=== PATIENT | female | born 1985 | race Caucasian/White ===

== ENCOUNTER 2017-09-20 19:04 | Emergency (ER) | payer MEDICARE, MEDICAID ==
[2017-09-20 19:37] LABS: #Basophils 0.1 thou/uL (0.0-0.2); #Eosinphils 0.2 thou/uL (0.0-0.7); #Lymphocytes 1.7 thou/uL (1.20-3.40); #Monocytes 0.3 thou/uL (0.11-0.59); #Neutrophils 4.6 thou/uL (1.40-6.50); %Basophils 1.2 % (0.0-1.0); %Eosinophils 2.2 % (0.0-10.0); %Lymphocytes 24.6 % (21.0-51.0); %Monocytes 4.6 % (0.0-10.0); Hematocrit 39.9 % (36.0-47.0); Mean Platelet Volume 6.6 fL (7.4-10.4); Red Blood Cell (RBC) Count 4.79 mill/uL (4.20-5.40); White Blood Cell (WBC) Count 6.8 thou/uL (4.8-10.8)
[2017-09-20 19:59] LABS: ALT (SGPT) 18 U/L (8-55); AST (SGOT) 13 U/L (5-34); Alkaline Phosphatase 89 U/L (40-150); Anion Gap 12 mmol/L (10-20); BUN (Urea Nitrogen) 10 mg/dL (7.0-18.7); Bilirubin, Total 0.2 mg/dL (0.2-1.2); Calc. Creatinine Clearance 0 mL/min (70-130); Calcium 9.2 mg/dL (7.8-10.44); Carbon Dioxide 21 mmol/L (22-29); Chloride 109 mmol/L (98-107); Estimated GFR-MDRD Greater than 90; Globulin 3.6 g/dL (2.4-3.5); Protein, Total 7.4 g/dL (6.0-8.3)
[2017-09-20] MEDS ORDERED: Ondansetron HCl/PF 4 MG/2 ML Vial ONE ×2 (20:48→20:49)
[2017-09-20] MEDS ORDERED: Acetaminophen 325 MG TAB ONE (20:48)
[2017-09-20] MEDS ORDERED: Morphine 10 MG/ML VIAL ONE (21:36)
[2017-09-20 22:54] LABS: Bilirubin Negative (Negative); Blood, Urine Negative (Negative); Glucose, Urine (Dipstick) Negative (Negative); Ketone, Urine Negative (Negative); Nitrite Negative (Negative); Protein, Urine (Dipstick) Negative (Neg-Trace); Urobilinogen 0.2 mg/dL (0.2-1.0)
[2017-09-20 23:01] LABS: Bacteria/HPF Rare-Few HPF (None Seen); Hyaline Casts/LPF 0-3 HYALINE CAST LPF (0-3 Hyaline); RBC/HPF 0-3 HPF (0-3); Squamous Epithelial 0-3 HPF (0-3)
[2017-09-20] MEDS ORDERED: Promethazine HCl 25 MG/ML VIAL ONE (23:33)
[2017-09-20] MEDS ORDERED: Bisacodyl 10 MG SUPP ONE (23:33)
[2017-09-20] MEDS ORDERED: Ondansetron ODT 4 MG TAB ONE (23:47)
[2017-09-21] MEDS ORDERED: Ondansetron ODT 4 MG TAB ONE (00:09)
== END 2017-09-21 00:16 | disposition home or self-care (01) ==
LOC: ERS 19:04
DX: K59.00 Constipation, unspecified (principal); R11.2 Nausea with vomiting, unspecified; E78.5 Hyperlipidemia, unspecified; I10 Essential (primary) hypertension; E66.01 Morbid (severe) obesity due to excess calories
CPT/HCPCS: 36415; 80053; 81003; 81015; 81025; 83690; 85025; 96361; 96374; 96375; J2270; J2405; J2550; Q0162

== ENCOUNTER 2017-10-20 03:46 | Emergency (ER) | payer MEDICARE, MEDICAID ==
[2017-10-20] MEDS ORDERED: HYDROcodone/Acetaminophen 7.5/325 mg Tablet ONE (04:39)
== END 2017-10-20 04:59 | disposition home or self-care (01) ==
LOC: SCSER 03:46
DX: H60.92 Unspecified otitis externa, left ear (principal); E78.5 Hyperlipidemia, unspecified; I10 Essential (primary) hypertension; E66.9 Obesity, unspecified; G43.909 Migraine, unspecified, not intractable, without status migrainosus; G47.30 Sleep apnea, unspecified; F32.9 Major depressive disorder, single episode, unspecified; F43.10 Post-traumatic stress disorder, unspecified
CPT/HCPCS: 99282

== ENCOUNTER 2018-01-27 13:46 | Outpatient (CLI) | payer MEDICARE, MEDICAID | END 2018-01-27 13:47 | disposition home or self-care (01) | LOC: CTENTCT 13:46 | PROVIDERS: ATTEND Otolaryngology Plastic Surgery within the Head & Neck | DX: J32.9 Chronic sinusitis, unspecified (principal) | CPT/HCPCS: 70486 ==

== ENCOUNTER 2018-01-30 20:44 | Emergency (ER) | payer MEDICARE, MEDICAID ==
[2018-01-30] MEDS ORDERED: diphenhydrAMINE 50 MG/ML VIAL ONE (21:53)
[2018-01-30] MEDS ORDERED: Ketorolac Tromethamine 30 MG/ML VIAL ONE (21:53)
[2018-01-30] MEDS ORDERED: Metoclopramide HCl 10 MG/2 ML VIAL ONE (21:53)
[2018-01-30] MEDS ORDERED: HYDROcodone/Acetaminophen 5/325 mg Tablet ONE (23:46)
== END 2018-01-31 00:16 | disposition home or self-care (01) ==
LOC: ERS 20:44
DX: J32.9 Chronic sinusitis, unspecified (principal); G43.909 Migraine, unspecified, not intractable, without status migrainosus; E78.5 Hyperlipidemia, unspecified; I10 Essential (primary) hypertension; E66.9 Obesity, unspecified; G47.30 Sleep apnea, unspecified; F32.9 Major depressive disorder, single episode, unspecified; Z79.899 Other long term (current) drug therapy
CPT/HCPCS: 96361; 96374; 96375; J1200; J1885; J2765

== ENCOUNTER 2018-02-16 10:09 | Day surgery (SDC) | payer MEDICARE, MEDICAID ==
[2018-02-15 13:30] VITALS: BMI 71.8
[2018-02-16] MEDS ORDERED: Oxymetazoline HCl 0.05% ( 15 ML ) ONE ×2 (11:09→11:48)
[2018-02-16 11:45] LABS: BHCG - Serum Negative (NEGATIVE); Pregs Control Background? CLEAR/WHITE (CLR/WHITE); Pregs Control Bar Appear? YES (CONTROL BAR)
[2018-02-16] MEDS ORDERED: Midazolam HCl 2 mg/2 ml Vial ONE (11:47)
[2018-02-16] MEDS ORDERED: Fentanyl 100 MCG/2 ML VIAL ONE ×3 (11:47→13:59)
[2018-02-16] MEDS ORDERED: Lidocaine 1% w/Epinephrine 1:200K 30 ML VIAL ONE (11:48)
[2018-02-16] MEDS ORDERED: Ciprofloxacin 0.2% Otic 1 DROP CON ONE (12:40)
[2018-02-16] MEDS ORDERED: PROPOFOL 200 MG/20 ML VIAL ONE (13:11)
[2018-02-16] MEDS ORDERED: Dexamethasone 20 MG/5 ML VIAL ONE (13:11)
[2018-02-16] MEDS ORDERED: Lidocaine 1% PF 5 ML VIAL ONE (13:11)
[2018-02-16] MEDS ORDERED: Succinylcholine Chloride 20 MG/ML 10 ml SYRINGE FS ONE (13:11)
[2018-02-16] MEDS ORDERED: Ondansetron HCl/PF 4 MG/2 ML Vial ONE (13:11)
[2018-02-16] MEDS ORDERED: Hydrocodone-Acetamin 15 ML UDCUP ONE (15:21)
--- NOTE | 2018-02-17 12:57 | OP ---
DATE OF PROCEDURE: 02/16/2018 PREOPERATIVE DIAGNOSES: 1. Chronic rhinosinusitis. 2. Left posterior ethmoidal mass/osteoma. 3. Bilateral inferior turbinate hypertrophy. 4. Right middle turbinate peter bullosa. 5. Nasal obstruction. POSTOPERATIVE DIAGNOSES: 1. Chronic rhinosinusitis. 2. Left posterior ethmoidal mass/osteoma. 3. Bilateral inferior turbinate hypertrophy. 4. Right middle turbinate peter bullosa. 5. Nasal obstruction. PROCEDURES: 1. Bilateral endoscopic sinus surgery, total ethmoidectomies. 2. Bilateral endoscopic sinus surgery, maxillary antrostomies. 3. Bilateral endoscopic sinus surgery, frontal sinusotomies. 4. Bilateral inferior turbinate submucosal resection. 5. Endoscopic resection of right middle turbinate peter bullosa. SURGEON: Dr. César Villegas. ESTIMATED BLOOD LOSS: 50 mL. COMPLICATIONS: None. ANESTHESIA: GETA. PROCEDURE: The patient was taken to the operating room and placed supine on the table. General endo tracheal anesthesia was obtained by the Anesthesia staff. The tube was secured in the left lower lip . The patient placed in the beach chair position. Following this, Afrin pledgets were placed in the nasal cavity as the patient was prepped and draped for standard nasal procedures. Following this, t he middle turbinate were gently medialized using the [place] elevator. Injections were made of 1% lido che with 1:100,000 epinephrine into the middle turbinates, inferior turbinates, and lateral nasal w all. On the right middle turbinate was markedly enlarged. A vertical incision was made with a sick le knife and the lateral wall of the right middle turbinate peter bullosa was resected using the str eddieght microdebrider and straight Blakesley forceps. Following this, the uncinate process was exposed bilaterally and was anteriorly fractured using a ball-ended probe bilaterally. Following this, the straight microdebrider and upbiting Blakesley forceps were used to remove the uncinate process and al so expose and identify the maxillary sinus ostia bilaterally. Maxillary sinus ostia was then widened bilaterally using the straight microdebrider and curved microdebrider. Following this, the ethmoida l bulla was identified and was punctured on its medial and inferior aspect and was removed using the straight microdebrider. Following this, the grand lamella was identified and was punctured in the po sterior ethmoidal cells. Working from posterior to anterior, the ethmoidal cells were opened in a mu cosal-sparing technique. Following this, the 45 degree scope and the curved 40 degree microdebrider blade was used to further identify the frontal recess cells which were opened and identify the fronta l sinus ostia bilaterally. The frontal sinus ostia was then widened bilaterally using the 90 degree Blakesley forceps and the curved microdebrider. Following this, the 0 degree endoscope was advanced to left posterior ethmoidal cells. There was a fairly large and obstructing osteoma arising from the medial posterior wall of the orbit. This was gently manipulated and fractured off leaving the perio rbita intact. There was no herniation or bleeding in this area after removal. This was sent for pat hological specimen. The patient tolerated the procedure well. Meropacks were placed in the nasal ca vity.
--- NOTE | 2018-03-02 22:42 | EKG ---
Test Reason : PREOP Blood Pressure : / mmHG Vent. Rate : 090 BPM Atrial Rate : 090 BPM P-R Int : 124 ms QRS Dur : 086 ms QT Int : 380 ms P-R-T Axes : 019 018 001 degrees QTc Int : 464 ms Normal sinus rhythm Normal ECG When compared with ECG of 23-APR-2017 03:19, T wave amplitude has decreased in Lateral leads Confirmed by Kate BURGOS ([id number]) on 03/02/2018 10:41:55 PM Referred By: EBONY Confirmed By:Kate BURGOS
== END 2018-02-16 15:47 | disposition home or self-care (01) ==
LOC: SDC 10:09
PROVIDERS: ATTEND Otolaryngology Plastic Surgery within the Head & Neck
PROC: 09TL0ZZ Resection of Nasal Turbinate, Open Approach (ICD-10-PCS; principal; 2018-02-16)
PROC: 09TV8ZZ Resection of Left Ethmoid Sinus, Via Natural or Artificial Opening Endoscopic (ICD-10-PCS; 2018-02-16)
PROC: 09TU8ZZ Resection of Right Ethmoid Sinus, Via Natural or Artificial Opening Endoscopic (ICD-10-PCS; 2018-02-16)
PROC: 099R8ZZ Drainage of Left Maxillary Sinus, Via Natural or Artificial Opening Endoscopic (ICD-10-PCS; 2018-02-16)
PROC: 099Q8ZZ Drainage of Right Maxillary Sinus, Via Natural or Artificial Opening Endoscopic (ICD-10-PCS; 2018-02-16)
PROC: 099T8ZZ Drainage of Left Frontal Sinus, Via Natural or Artificial Opening Endoscopic (ICD-10-PCS; 2018-02-16)
PROC: 099S8ZZ Drainage of Right Frontal Sinus, Via Natural or Artificial Opening Endoscopic (ICD-10-PCS; 2018-02-16)
DX: D16.4 Benign neoplasm of bones of skull and face (principal); J32.9 Chronic sinusitis, unspecified; J34.3 Hypertrophy of nasal turbinates; J34.2 Deviated nasal septum; J30.89 Other allergic rhinitis; H91.90 Unspecified hearing loss, unspecified ear; H69.80 Other specified disorders of Eustachian tube, unspecified ear; E78.00 Pure hypercholesterolemia, unspecified; K21.9 Gastro-esophageal reflux disease without esophagitis; F41.9 Anxiety disorder, unspecified; F32.9 Major depressive disorder, single episode, unspecified; Z88.1 Allergy status to other antibiotic agents; Z88.2 Allergy status to sulfonamides; Z79.899 Other long term (current) drug therapy
CPT/HCPCS: 84703; 85014; 88304; 88311; 93005; 93010; 96374; J0131; J1100; J2001; J2250; J2405; J2704; J3010; J7620

== ENCOUNTER 2018-03-06 19:03 | Emergency (ER) | payer MEDICARE, MEDICAID | END 2018-03-06 19:41 | disposition home or self-care (01) | LOC: SCSER 19:03 | DX: J02.9 Acute pharyngitis, unspecified (principal); J30.2 Other seasonal allergic rhinitis; E78.5 Hyperlipidemia, unspecified; I10 Essential (primary) hypertension; E66.01 Morbid (severe) obesity due to excess calories; G43.909 Migraine, unspecified, not intractable, without status migrainosus; E28.2 Polycystic ovarian syndrome; G47.30 Sleep apnea, unspecified; F32.9 Major depressive disorder, single episode, unspecified; F43.10 Post-traumatic stress disorder, unspecified; F41.9 Anxiety disorder, unspecified | CPT/HCPCS: 99283 ==

== ENCOUNTER 2018-04-17 18:19 | Emergency (ER) | payer MEDICARE, OTHER ==
[2018-04-17] MEDS ORDERED: Ketorolac Tromethamine 30 MG/ML VIAL ONE (18:51)
[2018-04-17] MEDS ORDERED: traMADol HCl 50 MG TAB ONE (18:52)
[2018-04-17] MEDS ORDERED: Morphine 4 MG/ML VIAL ONE (19:39)
[2018-04-17] MEDS ORDERED: Ondansetron ODT 4 MG TAB ONE (19:40)
== END 2018-04-17 20:34 | disposition home or self-care (01) ==
LOC: ERS 18:19
DX: M25.512 Pain in left shoulder (principal); G89.29 Other chronic pain; E78.5 Hyperlipidemia, unspecified; I10 Essential (primary) hypertension; E66.01 Morbid (severe) obesity due to excess calories; G43.909 Migraine, unspecified, not intractable, without status migrainosus; E28.2 Polycystic ovarian syndrome; G47.30 Sleep apnea, unspecified; F43.10 Post-traumatic stress disorder, unspecified; F32.9 Major depressive disorder, single episode, unspecified; F41.9 Anxiety disorder, unspecified; Z79.51 Long term (current) use of inhaled steroids; Z79.899 Other long term (current) drug therapy
CPT/HCPCS: 96372; J1885; J2270; Q0162

== ENCOUNTER 2018-05-13 04:57 | Observation (INO) | payer MEDICARE, MEDICAID ==
[2018-05-13 06:14] LABS: BHCG - Serum Negative (NEGATIVE); Pregs Control Background? CLEAR/WHITE (CLR/WHITE); Pregs Control Bar Appear? YES (CONTROL BAR)
[2018-05-13 06:23] LABS: ALT (SGPT) 17 U/L (8-55); AST (SGOT) 13 U/L (5-34); Albumin 4.2 g/dL (3.5-5.0); Alkaline Phosphatase 108 U/L (40-150); Anion Gap 11 mmol/L (10-20); BUN (Urea Nitrogen) 16 mg/dL (7.0-18.7); Bilirubin, Total Less than 0.2 mg/dL (0.2-1.2); CK (CPK) 49 U/L (29-168); Calc. Creatinine Clearance 0 mL/min (70-130); Calcium 9.8 mg/dL (7.8-10.44); Carbon Dioxide 24 mmol/L (22-29); Chloride 109 mmol/L (98-107); Estimated GFR-MDRD 75; Globulin 2.8 g/dL (2.4-3.5); Glucose 89 mg/dL (70-105); Lipase 24 U/L (8-78); Potassium 4.3 mmol/L (3.5-5.1); Sodium 140 mmol/L (136-145)
[2018-05-13 06:23] LABS: #Eosinphils 0.2 thou/uL (0.0-0.7); #Lymphocytes 2.4 thou/uL (1.20-3.40); #Monocytes 0.4 thou/uL (0.11-0.59); #Neutrophils 4.6 thou/uL (1.40-6.50); %Basophils 0.7 % (0.0-1.0); %Eosinophils 2.9 % (0.0-10.0); %Lymphocytes 31.1 % (21.0-51.0); %Neutrophils 60.4 % (42.0-75.0); Hemoglobin 11.7 g/dL (12.0-16.0); Mean Corpuscular HGB CONC 31.9 g/dL (32.0-36.0); Mean Corpuscular Hemoglobin 25.7 pg (27.0-31.0); Mean Corpuscular Volume 80.4 fL (78.0-98.0); Mean Platelet Volume 8.3 fL (7.4-10.4); Platelet Count 155 thou/uL (130-400); Red Blood Cell (RBC) Count 4.56 mill/uL (4.20-5.40); White Blood Cell (WBC) Count 7.6 thou/uL (4.8-10.8)
[2018-05-13 06:39] LABS: CKMB 0.5 ng/mL (0-6.6); Troponin I Less than 0.010 ng/mL (< 0.028)
[2018-05-13] MEDS ORDERED: Pantoprazole 40 MG VIAL ONE (06:51)
[2018-05-13] MEDS ORDERED: Mag-Al 1200 mg/1200 mg/30 ML UDCUP ONE (06:51)
[2018-05-13] MEDS ORDERED: Lidocaine Viscous Sol 2% 15 ml UD Cup ONE (06:51)
[2018-05-13] MEDS ORDERED: Dicyclomine 20 MG TAB ONE (06:51)
[2018-05-13] MEDS ORDERED: Ondansetron ODT 4 MG TAB ONE (06:51)
[2018-05-13] MEDS ORDERED: Nitroglycerin 0.4 MG TAB (25 Tab Bottle) ONE (07:44)
--- NOTE | 2018-05-13 07:46 | RAD ---
2 VIEWS CHEST: Date: 05/13/18 COMPARISON: 11/16/15. HISTORY: Chest pain that began tonight. FINDINGS: Two views of the chest show normal sized cardiomediastinal silhouette. There is no evidence of consol idation, mass, or pleural effusion. The bones are unremarkable. IMPRESSION: No evidence of acute cardiopulmonary disease. POS: [facility]
[2018-05-13] MEDS ORDERED: Ondansetron ODT 4 MG TAB PO PRN (08:55)
[2018-05-13] MEDS ORDERED: Acetaminophen 325 MG TAB PO PRN (08:55)
--- NOTE | 2018-05-13 08:55 | PDOC.FPRHP ---
- History of Present Illness Chief Complaint: Chest pain History of Present Illness: 32 yo F here with CC of chest pain that onset this morning. Pain is described as both substernal and as stabbing type pain originating in her upper back. She states that she was exercising on an elliptical at around 0200. After 12 minutes she became very SOB. At that point she stopped her exercise and rested. Over the next hour she noted nausea and chest pain. She denies sweating, peripheral numbness, changes in vision. After 1 hour of symptoms she presented to the ED for evaluation ED Course: In the ED EKG shows decreased voltage, otherwise NSR. No ST or T wave changes - Allergies/Adverse Reactions Allergies Allergy/AdvReac Type Severity Reaction Status Date / Time Sulfa (Sulfonamide Allergy Unknown Hives Verified 02/15/18 13:30 Antibiotics) cephalexin monohydrate Allergy Emesis Verified 02/15/18 13:30 [From Keflex] clindamycin Allergy Verified 05/13/18 09:38 promethazine HCl Allergy "HYPER- Verified 02/15/18 13:30 [From Phenergan] CRAWLING OUT OF SKIN" - Home Medications Medication Instructions Recorded Confirmed Type Prazosin HCl [Minipress] 15 mg PO QPM 05/31/13 05/13/18 History Albuterol Sulfate [Albuterol 2.5 mg NEB Q6H PRN 09/16/14 05/13/18 History Sulfate Neb] Lisinopril 5 mg PO QPM 09/16/14 05/13/18 History Promethazine HCl 25 mg PO DAILY 09/16/14 05/13/18 History Topiramate 200 mg PO QPM 09/16/14 05/13/18 History buPROPion HCl [buPROPion HCl XL] 300 mg PO HS 09/16/14 05/13/18 History diphenhydrAMINE HCl 50 mg PO Q6HR PRN 09/16/14 05/13/18 History Ondansetron HCl [Zofran] 8 mg PO TID PRN #0 tablet 09/17/14 05/13/18 Rx Albuterol Sulfate [Proventil Hfa] 2 puff INH Q6H PRN 11/28/15 05/13/18 History Budesonide-Formoterol [Symbicort 2 puff INH BID 11/28/15 05/13/18 History 160-4.5] Butalbital/Acetaminophen 1 each PO PRN PRN 11/28/15 05/13/18 History [Butalbital-Acetaminophn 50-325] DULoxetine [Cymbalta] 120 mg PO QPM 11/28/15 05/13/18 History Montelukast Sodium [Singulair] 10 mg PO QPM 11/28/15 05/13/18 History Nortriptyline HCl 50 mg PO HS 11/28/15 05/13/18 History hydrOXYzine HCl [Hydroxyzine HCl] 150 mg PO HS 11/28/15 05/13/18 History Cholecalciferol (Vitamin D3) 4,000 unit PO DAILY 02/15/18 05/13/18 History [Vitamin D3] Dexlansoprazole [Dexilant] 1 tab PO HS 02/15/18 05/13/18 History Diclofenac Potassium 1 tab PO ASDIR 02/15/18 05/13/18 History Etonogestrel [Nexplanon] 68 mg SQ ONE 02/15/18 05/13/18 History Lurasidone HCl [Latuda] 1 tab PO HS 02/15/18 05/13/18 History Fexofenadine HCl 180 mg PO DAILY 05/13/18 05/13/18 History metFORMIN HCl [Metformin HCl] 500 mg PO BID 05/13/18 05/13/18 History - History PMHx: Chronic anemia Gastritis Hypovitaminosis D Adjustment disorder w/anxiety Hemorrhoids Polypharmacy IBS Stress incontinence Asthma moderate persistent PCOS GERD Migraine PTSD Depression Insulin resistance JAMES Nocturan enuresis MOrbid obesity HTN PSHx: None FHx: Unk Social: Denies etoh, tobacco, recreational drugs - Review of Systems General: denies: fever/chills, weight/appetite/sleep changes, night sweats Eyes: denies: vision changes ENT: denies: nasal congestion, rhinorrhea Respiratory: reports: shortness of breath, exercise intolerance. denies: cough , congestion Cardiovascular: reports: chest pain. denies: palpitation, edema Gastrointestinal: reports: nausea. denies: vomiting, diarrhea, constipation, abdominal pain, GI bleeding Genitourinary: denies: incontinence, dysuria Skin: denies: rashes, lesions Musculoskeletal: denies: pain, tenderness, stiffness Neurological: denies: numbness, syncope Psychological: denies: anxiety, depression - Vital signs BP: 135/70 HR: 85 RR: 17 Tmax: 97.9 Pox: 95% on RA Wt: 169 kg - Physical Exam Constitutional: NAD, awake, alert and oriented HEENT: normocephalic and atraumatic, no scleral icterus, grossly normal vision, grossly normal hearing Neck: FROM, trachea midline Chest: no-tender to palpation Heart: RRR, normal S1/S2, no murmurs/rubs/gallops Lungs: CTAB, no respiratory distress Abdomen: soft, non-tender, bowel sounds present Musculoskeletal: ROM grossly normal Neurological: no focal deficit, CN II-XII intact Skin: no rash/lesions, good turgor Heme/Lymphatic: no unusual bruising or bleeding Psychiatric: normal mood and affect, good judgment and insight FMR H&P: Results - Labs Result Diagrams: 05/13/18 05:53 05/13/18 05:49 Lab results: WBC 7.6 thou/uL (4.8-10.8) 05/13/18 05:53 Hgb 11.7 g/dL (12.0-16.0) L 05/13/18 05:53 Hct 36.7 % (36.0-47.0) 05/13/18 05:53 MCV 80.4 fL (78.0-98.0) 05/13/18 05:53 Plt Count 155 thou/uL (130-400) 05/13/18 05:53 Neutrophils % 60.4 % (42.0-75.0) 05/13/18 05:53 Sodium 140 mmol/L (136-145) 05/13/18 05:49 Potassium 4.3 mmol/L (3.5-5.1) 05/13/18 05:49 Chloride 109 mmol/L (98-107) H 05/13/18 05:49 Carbon Dioxide 24 mmol/L (22-29) 05/13/18 05:49 BUN 16 mg/dL (7.0-18.7) 05/13/18 05:49 Creatinine 0.87 mg/dL (0.6-1.1) 05/13/18 05:49 Glucose 89 mg/dL (70-105) 05/13/18 05:49 Calcium 9.8 mg/dL (7.8-10.44) 05/13/18 05:49 Total Bilirubin Less than 0.2 mg/dL (0.2-1.2) L 05/13/18 05:49 AST 13 U/L (5-34) 05/13/18 05:49 ALT 17 U/L (8-55) 05/13/18 05:49 Alkaline Phosphatase 108 U/L (40-150) 05/13/18 05:49 Creatine Kinase 49 U/L (29-168) 05/13/18 05:49 CK-MB (CK-2) 0.5 ng/mL (0-6.6) 05/13/18 05:53 Serum Total Protein 7.0 g/dL (6.0-8.3) 05/13/18 05:49 Albumin 4.2 g/dL (3.5-5.0) 05/13/18 05:49 Lipase 24 U/L (8-78) 05/13/18 05:49 - EKG Interpretation EKG: NSR at 95, No ST or T wave changes. Poor R wave progression FMR H&P: A/P - Problem List (1) Atypical chest pain Current Visit: Yes Status: Acute Code(s): R07.89 - OTHER CHEST PAIN (2) Anxiety Current Visit: No Status: Acute Code(s): F41.9 - ANXIETY DISORDER, UNSPECIFIED (3) Depression Current Visit: No Status: Acute Code(s): F32.9 - MAJOR DEPRESSIVE DISORDER, SINGLE EPISODE, UNSPECIFIED (4) PCOS (polycystic ovarian syndrome) Current Visit: Yes Status: Acute Code(s): E28.2 - POLYCYSTIC OVARIAN SYNDROME - Plan Atypical chest pain - admit to tele obs - nuc stress test today - A1c and Lipid for risk stratification - TSH 1 month ago in clinic normal - Trend trops, first is negative - HEART score 2 HTN - home meds PCOS - home metformin Anxiety/Depression - home meds Morbid obesity - pt will likely need 2 day stress PPx - SCD Code Full Diet NPO Dispo: Stable, r/o ACS and stress today. DC pending stress results. LOS <2 days FMR H&P: Upper Level - Pertinent history 32yo CF with pmhx sig for morbid obesity, severe anxiety & PTSD, HTN, JAMES, and PCOS presents to ED with concern for chest pain. Per pt, she ate dinner at 10: 00 last night, then began a work out on a stationary bike where she pushed herself harder than usual. Endorses shortness of breath, headache, and nausea during exercise after 12 minutes of biking. She then stopped and vomited x 1. After resting for approx 1 hr, pt developed central to left sided chest pain described as a tightness going from her back to her front. Monitored BP at home after onset of chest pain for a few hours and it was noted to be normal but her CP did not resolve, therefore she came to ED. It was minimally improved with the NTG given in ED, but endorses persistent pain at this time. Does endorse generalized exercise intolerance as she is just starting to work out again. Has not had any cardiac work-up before. - Pertinent findings VSS CE's neg Labs wnl EKG- flattened T waves in lateral leads PE- Gen- NAD, A&Ox3, morbidly obese CV- rrr no mrg, intact dp pulses Lungs- CTAB Msk- mild ttp to anterior chest wall, not the same as her chest pain LE- no edema - Plan Date/Time: 05/13/18 0854 32 yo CF here for- 1) Atypical chest pain- HEART = 2, CE's neg. suspect likely deconditioning due to body habitus, but given risk factors, will stratify and perform a stress test (will likely be a 2 day stress). Trend trops, repeat EKG and check FLP, a1c (last 07/2017 in clinic). 2) Anxiety- continue home meds 3) HTN- continue home meds 4) morbid obesity- mediator referral 5) PCOS- continue metformin 6) JAMES- home cpap I, [Linda Hobbs DO ([email or web address])], have evaluated this patient and agree with findings/plan as outlined by environmental health and safety intern resident. Pertinent changes/additions are listed here. Attending Addendum - Attending Addendum Date/Time: 05/13/18 1320 I personally evaluated the patient and discussed the management with Dr. Hobbs and Dr. May I agree with the History, Examination, Assessment and Plan documented above with any addition or exceptions noted below. Likely deconditioning but due to symptoms present with exercising will admit for stress testing to rule out cardiac causes. Patient currently without pain or complaints. Torie
[2018-05-13 09:29] VITALS: BMI 75.0
[2018-05-13 09:30] VITALS: BP 126/90; TEMP 97.5
[2018-05-13 09:38] LABS: Hemoglobin A1c 5.2 % (4.0-6.0)
[2018-05-13 09:52] LABS: Cardiac Risk 5.6 (Less than 4.5)
[2018-05-13 09:55] LABS: Troponin I Less than 0.010 ng/mL (< 0.028)
[2018-05-13] MEDS ORDERED: PROVENTIL INHALER 6.7 G (200 INHALATIONS) INH PRN (11:32)
[2018-05-13] MEDS ORDERED: ACETAMINOPHEN PO PRN (11:32)
[2018-05-13] MEDS ORDERED: Albuterol Sulfate 2.5 mg/3 ml Neb NEB PRN (11:32)
[2018-05-13] MEDS ORDERED: BUTALBITAL PO PRN (11:32)
[2018-05-13] MEDS ORDERED: [UNRECOGNIZED DRUG - OTHER] PO PRN (11:32)
[2018-05-13] MEDS ORDERED: ETONOGESTREL 68 MG SQ SCH (11:45)
[2018-05-13] MEDS ORDERED: DICLOFENAC POTASSIUM PO SCH (11:45)
[2018-05-13] MEDS ORDERED: diphenhydrAMINE 50 MG CAP PO PRN (11:45)
[2018-05-13] MEDS ORDERED: Ondansetron ODT 8 MG TAB PO PRN (11:49)
[2018-05-13] MEDS ORDERED: Regadenoson 0.4 MG/5 ML SYRINGE ONE (12:12)
--- NOTE | 2018-05-13 13:59 | NM ---
STRESS ONLY MYOCARDIAL PERFUSION EVALUATION: Indication: Chest pain with hypolipidemic and hypertension. Radiopharmaceutical: 29 mCi Technetium 99M Sestamibi IV with stress only. FINDINGS: No myocardial perfusion defect is evident. There is normal wall motion thickening. Estimated LVEF is 56%. IMPRESSION: Normal stress only myocardial perfusion evaluation. POS: [facility]
[2018-05-13] MEDS ORDERED: Mometasone/Formoterol 120 PUFF INHALER INH SCH (18:30)
[2018-05-13] MEDS ORDERED: DULoxetine 60 MG CAP PO SCH (21:00)
[2018-05-13] MEDS ORDERED: LURASIDONE HCL 40 MG PO SCH (21:00)
[2018-05-13] MEDS ORDERED: Nortriptyline HCl 25 MG CAP PO SCH (21:00)
[2018-05-13] MEDS ORDERED: Topiramate 100 MG TAB PO SCH (21:00)
[2018-05-13] MEDS ORDERED: Bupropion 150 MG XL TAB PO SCH (21:00)
[2018-05-13] MEDS ORDERED: Montelukast Sodium 10 mg Tablet PO SCH (21:00)
[2018-05-13] MEDS ORDERED: Lisinopril 5 MG TAB PO SCH (21:00)
[2018-05-13] MEDS ORDERED: Prazosin HCl 1 MG CAP PO SCH (21:00)
[2018-05-13] MEDS ORDERED: hydrOXYzine 25 MG TAB PO SCH (21:00)
[2018-05-13] MEDS ORDERED: metFORMIN 500 MG TAB PO SCH (21:00)
[2018-05-14] MEDS ORDERED: Loratadine 10 MG TAB PO SCH (09:00)
[2018-05-14] MEDS ORDERED: Promethazine 25 MG TAB PO SCH (09:00)
== END 2018-05-13 15:20 | disposition home or self-care (01) ==
LOC: ERS 04:57 → 2SW 09:02
PROVIDERS: ADMIT Student in an Organized Health Care Education/Training Program; ATTEND Student in an Organized Health Care Education/Training Program
DX: R07.89 Other chest pain (principal); Z88.2 Allergy status to sulfonamides; Z88.8 Allergy status to other drugs, medicaments and biological substances
CPT/HCPCS: 71046; 78452; 80053; 80061; 82550; 82553; 83036; 83690; 84484 ×2; 84703; 85025; 93005; 93017; 96361; 96374; 97139; 99285; A9500; 36415; C9113; J2785; Q0162

== ENCOUNTER 2018-09-29 15:06 | Emergency (ER) | payer MEDICARE, MEDICAID ==
--- NOTE | 2018-09-29 15:57 | RAD ---
PA AND LATERAL VIEWS OF THE CHEST: History: Cough, congestion, fever. FINDINGS: Comparison is made with exam of 05-13-18. The heart size is normal. The lungs are expanded without focal areas of consolidation, pneumothorax, or pleural effusions. No acute osseous abnormalities are seen. IMPRESSION: No radiographic evidence of acute cardiopulmonary process. POS: [facility]
== END 2018-09-29 16:18 | disposition home or self-care (01) ==
LOC: ERS 15:06
DX: J06.9 Acute upper respiratory infection, unspecified (principal); E66.01 Morbid (severe) obesity due to excess calories; G43.909 Migraine, unspecified, not intractable, without status migrainosus; E78.5 Hyperlipidemia, unspecified; F41.9 Anxiety disorder, unspecified; F90.9 Attention-deficit hyperactivity disorder, unspecified type; G47.30 Sleep apnea, unspecified; F32.9 Major depressive disorder, single episode, unspecified
CPT/HCPCS: 71046

== ENCOUNTER 2018-10-25 15:43 | Emergency (ER) | payer MEDICARE, OTHER ==
[2018-10-25] MEDS ORDERED: Acetaminophen 500 MG TAB ONE (16:17)
== END 2018-10-25 16:28 | disposition home or self-care (01) ==
LOC: ERS 15:43
DX: M25.562 Pain in left knee (principal); E78.5 Hyperlipidemia, unspecified; I10 Essential (primary) hypertension; E66.01 Morbid (severe) obesity due to excess calories; G43.909 Migraine, unspecified, not intractable, without status migrainosus; G47.30 Sleep apnea, unspecified; F32.9 Major depressive disorder, single episode, unspecified; F43.10 Post-traumatic stress disorder, unspecified; F29 Unspecified psychosis not due to a substance or known physiological condition; Z79.899 Other long term (current) drug therapy
CPT/HCPCS: 99283

== ENCOUNTER 2018-11-02 13:15 | Outpatient (CLI) | payer MEDICARE, MEDICAID ==
--- NOTE | 2018-11-02 15:18 | MRI ---
MRI OF THE LEFT KNEE: Date: 11-02-18 Provided Clinical History: Left knee pain. FINDINGS: Evaluation is limited by patient motion. The anterior cruciate ligament, posterior cruciate ligament, medial collateral ligament, and lateral collateral ligamentous complex appear grossly intact, as does the extensor mechanism. There is a complex tear of the lateral meniscus, with a displaced flap tear at the body and posterior horn junction which is flipped anteriorly to lie adjacent to the anterior horn. No definite focal articular cartilage defect is apparent. There is a mild knee joint effusion. No focal concerning regional marrow or muscular signal abnormality is apparent. IMPRESSION: 1. Displaced flap tear involving the body/posterior horn of the lateral meniscus as above. 2. Mild knee joint effusion. POS: [facility]
== END 2018-11-02 13:16 | disposition home or self-care (01) ==
LOC: TBSIIMAG 13:15
PROVIDERS: ATTEND Orthopaedic Surgery
DX: S83.242A Other tear of medial meniscus, current injury, left knee, initial encounter (principal); S83.272A Complex tear of lateral meniscus, current injury, left knee, initial encounter; M25.462 Effusion, left knee

== ENCOUNTER 2019-04-28 13:07 | Outpatient (CLI) | payer MEDICARE, MEDICAID | END 2019-04-28 13:08 | disposition home or self-care (01) | LOC: DTY/OP 13:07 | PROVIDERS: ATTEND Surgery | DX: E66.01 Morbid (severe) obesity due to excess calories (principal) | CPT/HCPCS: 97802 ==

== ENCOUNTER 2019-07-28 21:32 | Emergency (ER) | payer MEDICARE, MEDICAID ==
[2019-07-28 22:20] LABS: Bilirubin Small (Negative); Blood, Urine Trace (Negative); Clarity Slightly Cloudy (Clear); Glucose, Urine (Dipstick) Negative (Negative); Leukocyte Negative (Negative); Nitrite Negative (Negative); Protein, Urine (Dipstick) Negative (Neg-Trace); Urobilinogen 0.2 mg/dL (Less than 2)
[2019-07-28 22:25] LABS: Pregnancy Test - Urine (BHCG) Negative (Negative); Pregu Control Background? CLEAR/WHITE (CLR/WHITE); Pregu Control Bar Appear? YES (CONTROL BAR); Specific Gravity 1.026 (1.002-1.036)
[2019-07-28 22:32] LABS: Bacteria/HPF 1+ HPF (None Seen); RBC/HPF 0-3 HPF (0-3); WBC/HPF 0-3 HPF (0-3)
[2019-07-28] MEDS ORDERED: Ondansetron PF 4 MG/2 ML Vial ONE (22:38)
== END 2019-07-29 00:12 | disposition home or self-care (01) ==
LOC: SCSER 21:32
DX: E86.0 Dehydration (principal); E78.5 Hyperlipidemia, unspecified; I10 Essential (primary) hypertension; E66.9 Obesity, unspecified; G43.909 Migraine, unspecified, not intractable, without status migrainosus; F32.9 Major depressive disorder, single episode, unspecified; F43.10 Post-traumatic stress disorder, unspecified; Z79.899 Other long term (current) drug therapy; Z79.51 Long term (current) use of inhaled steroids
CPT/HCPCS: 81003; 81015; 81025; 96361; 96374; J2405

== ENCOUNTER 2019-07-30 03:40 | Emergency (ER) | payer MEDICARE, MEDICAID ==
[2019-07-30] MEDS ORDERED: Ondansetron PF 4 MG/2 ML Vial ONE (04:24)
[2019-07-30 04:30] LABS: #Basophils 0.1 thou/uL (0.0-0.2); #Eosinphils 0.2 thou/uL (0.0-0.7); #Lymphocytes 2.2 thou/uL (1.20-3.40); #Monocytes 0.4 thou/uL (0.11-0.59); #Neutrophils 5.5 thou/uL (1.40-6.50); %Basophils 0.6 % (0.0-1.0); %Eosinophils 1.9 % (0.0-10.0); %Lymphocytes 26.7 % (21.0-51.0); %Monocytes 5.2 % (0.0-10.0); %Neutrophils 65.6 % (42.0-75.0); Hemoglobin 11.4 g/dL (12.0-16.0); Mean Corpuscular HGB CONC 31.9 g/dL (32.0-36.0); Mean Corpuscular Hemoglobin 24.7 pg (27.0-31.0); Mean Corpuscular Volume 77.5 fL (78.0-98.0); Platelet Count 300 thou/uL (130-400); RBC Distribution Width 14.1 % (11.5-14.5); Red Blood Cell (RBC) Count 4.61 mill/uL (4.20-5.40); White Blood Cell (WBC) Count 8.4 thou/uL (4.8-10.8)
[2019-07-30 04:38] LABS: BHCG - Serum Negative (NEGATIVE); Pregs Control Background? CLEAR/WHITE (CLR/WHITE); Pregs Control Bar Appear? YES (CONTROL BAR)
[2019-07-30 04:44] LABS: ALT (SGPT) 95 U/L (8-55); AST (SGOT) 53 U/L (5-34); Albumin 4.1 g/dL (3.5-5.0); Alkaline Phosphatase 107 U/L (40-150); Anion Gap 14 mmol/L (10-20); BUN (Urea Nitrogen) 13 mg/dL (7.0-18.7); Bilirubin, Total 0.3 mg/dL (0.2-1.2); Calc. Creatinine Clearance 0 mL/min (70-130); Calcium 9.4 mg/dL (7.8-10.44); Carbon Dioxide 20 mmol/L (22-29); Chloride 106 mmol/L (98-107); Estimated GFR-MDRD Greater than 90; Globulin 3.1 g/dL (2.4-3.5); Glucose 92 mg/dL (70-105); Lipase 14 U/L (8-78); Potassium 3.8 mmol/L (3.5-5.1); Protein, Total 7.2 g/dL (6.0-8.3); Sodium 136 mmol/L (136-145)
== END 2019-07-30 05:22 | disposition home or self-care (01) ==
LOC: ERS 03:40
DX: R11.2 Nausea with vomiting, unspecified (principal); E78.5 Hyperlipidemia, unspecified; I10 Essential (primary) hypertension; G43.909 Migraine, unspecified, not intractable, without status migrainosus; G47.30 Sleep apnea, unspecified; J45.909 Unspecified asthma, uncomplicated; F32.9 Major depressive disorder, single episode, unspecified; F41.9 Anxiety disorder, unspecified; Z79.899 Other long term (current) drug therapy
CPT/HCPCS: 36415; 80053; 83690; 84703; 85025; 96361; 96374; J2405

== ENCOUNTER 2019-07-31 20:20 | Observation (INO) | payer MEDICARE, MEDICAID ==
--- NOTE | 2019-08-01 00:04 | CT ---
CT ABDOMEN NONCONTRAST CT PELVIS NONCONTRAST: (Urolithiasis protocol) DATE: 07/31/2019 HISTORY: 33 year old female with generalized abdominal pain, nausea, and emesis. TECHNIQUE: IV injection of iodinated contrast media: None Oral contrast media: None FINDINGS: Other than for urolithiasis, the lack of IV and oral contrast limits the evaluation. Liver: No contour abnormalities. Spleen: No splenomegaly. Pancreas: No contour abnormalities. Adrenals: No mass. Kidneys: No nephrolithiasis or overt hydronephrosis. Ureters: No calculi. Bladder: No calculi. Abdominal aorta: No aneurysm. Small bowel: No dilation. Colon: No adjacent fat stranding. Appendix: No dilation or adjacent fat stranding. Free air: None Free fluid: None Cholecystectomy clips in the gallbladder fossa. There is a 5.5 x 4 x 4.5 cm soft tissue density mass broadly abutting the left posterior aspect of th e uterine body, representing a change compared to 09/16/2014.. IMPRESSION: 1). No acute findings. 2) 5.5 cm mass within the left side of the pelvic cavity. Uncertain whether this is a uterine leiomyo ma fundus fibroid) that has grown since 2013, or represents an ovarian mass.
[2019-08-01 00:57] LABS: #Eosinphils 0.2 thou/uL (0.0-0.7); #Lymphocytes 2.9 thou/uL (1.20-3.40); #Monocytes 0.4 thou/uL (0.11-0.59); #Neutrophils 4.7 thou/uL (1.40-6.50); %Basophils 0.5 % (0.0-1.0); %Eosinophils 2.3 % (0.0-10.0); %Lymphocytes 35.1 % (21.0-51.0); %Monocytes 4.4 % (0.0-10.0); %Neutrophils 57.7 % (42.0-75.0); Hemoglobin 11.3 g/dL (12.0-16.0); Mean Corpuscular HGB CONC 31.8 g/dL (32.0-36.0); Mean Corpuscular Hemoglobin 24.9 pg (27.0-31.0); Mean Corpuscular Volume 78.2 fL (78.0-98.0); Mean Platelet Volume 6.9 fL (7.4-10.4); Platelet Count 319 thou/uL (130-400); RBC Distribution Width 14.3 % (11.5-14.5); Red Blood Cell (RBC) Count 4.55 mill/uL (4.20-5.40); White Blood Cell (WBC) Count 8.2 thou/uL (4.8-10.8)
[2019-08-01] MEDS ORDERED: Ondansetron PF 4 MG/2 ML Vial ONE ×2 (01:01→07:36)
[2019-08-01 01:17] LABS: ALT (SGPT) 71 U/L (8-55); AST (SGOT) 24 U/L (5-34); Alkaline Phosphatase 102 U/L (40-150); Anion Gap 11 mmol/L (10-20); BUN (Urea Nitrogen) 10 mg/dL (7.0-18.7); Bilirubin, Total 0.2 mg/dL (0.2-1.2); Calc. Creatinine Clearance 0 mL/min (70-130); Calcium 9.5 mg/dL (7.8-10.44); Carbon Dioxide 25 mmol/L (22-29); Chloride 105 mmol/L (98-107); Estimated GFR-MDRD 78; Glucose 84 mg/dL (70-105); Potassium 3.6 mmol/L (3.5-5.1); Sodium 137 mmol/L (136-145)
[2019-08-01] MEDS ORDERED: Ketorolac Tromethamine 30 MG/ML VIAL ONE (02:47)
--- NOTE | 2019-08-01 03:05 | PDOC.FPRHP ---
- History of Present Illness Chief Complaint: n/v History of Present Illness: 33yo CF h/o PCOS, morbid obesity, HLD, HTN, PCOS, SANDERSON, JAMES, Asthma, and depression presents for intractable n/v x3 days. Pt states she is on pre-op diet for planned gastric sleeve on 08/08. No BM x5 days and was watery at that time, no urge to go to bathroom. Phenergan helps with n/v but she has ran out at home. She has been seen in ED for similar sxs 2 other times in past week with negative workup and sent home with nausea medications. Endorses fevers/ chills. Mild Congestion and sneezing. No CP, dyspnea, urinary sxs. Does endorse decreased appetite and PO intake, partially due to diet. Does feel more bloated than normal. Pt also reports LLQ abd pain. Dull ache, constant, 8/10. No OTCs for pain due to trying to avoid NSAIDs for planned surgery. No radiation. Presents for at least 2 weeks. No change in pain with BM, urination, or PO intake. ED Course: 1L NS bolus, Zofran, Toradol. - Allergies/Adverse Reactions Allergies Allergy/AdvReac Type Severity Reaction Status Date / Time Sulfa (Sulfonamide Allergy Unknown Hives Verified 08/01/19 07:38 Antibiotics) cephalexin monohydrate Allergy Emesis Verified 08/01/19 07:38 [From Keflex] clindamycin Allergy Verified 08/01/19 07:38 promethazine HCl Allergy "HYPER- Verified 08/01/19 07:38 [From Phenergan] CRAWLING OUT OF SKIN" - Home Medications Medication Instructions Recorded Confirmed Type Prazosin HCl [Minipress] 15 mg PO QPM 05/31/13 05/13/18 History Albuterol Sulfate [Albuterol 2.5 mg NEB Q6H PRN 09/16/14 05/13/18 History Sulfate Neb] Lisinopril 5 mg PO QPM 09/16/14 05/13/18 History Promethazine HCl 25 mg PO DAILY 09/16/14 05/13/18 History Topiramate 200 mg PO QPM 09/16/14 05/13/18 History buPROPion HCl [buPROPion HCl XL] 300 mg PO HS 09/16/14 05/13/18 History diphenhydrAMINE HCl 50 mg PO Q6HR PRN 09/16/14 05/13/18 History Ondansetron HCl [Zofran] 8 mg PO TID PRN #0 tablet 09/17/14 05/13/18 Rx Albuterol Sulfate [Proventil Hfa] 2 puff INH Q6H PRN 11/28/15 05/13/18 History Budesonide-Formoterol [Symbicort 2 puff INH BID 11/28/15 05/13/18 History 160-4.5] Butalbital/Acetaminophen 1 each PO Q6H PRN 11/28/15 05/13/18 History [Butalbital-Acetaminophn 50-325] DULoxetine [Cymbalta] 120 mg PO QPM 11/28/15 05/13/18 History Montelukast Sodium [Singulair] 10 mg PO QPM 11/28/15 05/13/18 History Nortriptyline HCl 50 mg PO HS 11/28/15 05/13/18 History hydrOXYzine HCl [Hydroxyzine HCl] 150 mg PO HS 11/28/15 05/13/18 History Cholecalciferol (Vitamin D3) 4,000 unit PO DAILY 02/15/18 05/13/18 History [Vitamin D3] Dexlansoprazole [Dexilant] 1 tab PO HS 02/15/18 05/13/18 History Diclofenac Potassium 1 tab PO ASDIR 02/15/18 05/13/18 History Etonogestrel [Nexplanon] 68 mg SQ ONE 02/15/18 05/13/18 History Lurasidone HCl [Latuda] 1 tab PO HS 02/15/18 05/13/18 History Diclofenac Potassium 50 mg PO TID PRN 05/13/18 05/13/18 History Fexofenadine HCl 180 mg PO DAILY 05/13/18 05/13/18 History metFORMIN HCl [Metformin HCl] 500 mg PO BID 05/13/18 05/13/18 History Comments: Above medications are not correct. Below is updated med list: Phenergan 12.5mg q6h prn n/v Zofran 4mg q6hr prn n/v Colace 100mg BID prn constipation Metformin 500mg BID Wellbutrin XL 400mg QD Flexeril 10mg BID prn muscle spasms/pain Miralax 17g QD prn constipation Diclofenac 50mg BID prn pain Lisinopril 5mg QD Dexilant 60mg QD Fexofenodine 180mg QD Singulair 10mg QD Proventil 1-2puffs q4h prn wheeze/SOB Cymbalta 120mg QD Topamax 100mg BID Minipress 10mg QHS Buspar 10mg QHS Amitripyline 50mg QHS Melatonin 10mg QHS - History PMHx: HLD, HTN, PCOS, JAMES on CPAP, Asthma, Migraines, Depression/PTSD, morbid obesity, SANDERSON PSHx: Cholecystectomy (2013), C-sectionx1 (2012), Tonsillectomy, Bilateral Carpel Tunnel, L. Meniscus Repair, Sinus Surgery- Mass behind eye (2018) FHx: Mom- 30's due to PE, DVT, Blood clot issues Dad- Unknown Social: Never smoked, denies alcohol use, denies any illicit drug use, Lives in [place] - Review of Systems General: reports: fever/chills, weight/appetite/sleep changes (decreased appetite). denies: fatigue Eyes: denies: eye pain, vision changes ENT: reports: nasal congestion, rhinorrhea Respiratory: denies: cough, congestion, shortness of breath Cardiovascular: denies: chest pain, palpitation, edema, orthopnea Gastrointestinal: reports: nausea, vomiting, constipation, abdominal pain ( Reports left lower sided.). denies: diarrhea, GI bleeding Genitourinary: denies: incontinence, dysuria, polyuria Skin: denies: rashes, lesions Musculoskeletal: denies: pain, tenderness, stiffness Neurological: denies: numbness, seizure, weakness Psychological: denies: anxiety, depression - Vital signs BP: [131/72] HR: 86RR: [18] Tmax: [99.0] Pox: [95]% on [RA] Wt: [158kg] - Physical Exam Constitutional: NAD, awake, alert and oriented, well developed, other (obese) HEENT: PERRLA, EOMI, MMM Neck: supple Heart: RRR, normal S1/S2, no murmurs/rubs/gallops, pulses present, no edema Lungs: CTAB, no respiratory distress, good air movement, no rales/rhonchi, no wheezing Abdomen: soft, bowel sounds present, no masses/distention, other (TTP over left lower quadrent. No rebound or guarding. No palpable masses) Neurological: no focal deficit Skin: no rash/lesions Psychiatric: normal mood and affect, good judgment and insight FMR H&P: Results - Labs Result Diagrams: 08/01/19 00:44 08/01/19 00:44 Lab results: WBC 8.2 thou/uL (4.8-10.8) 08/01/19 00:44 Hgb 11.3 g/dL (12.0-16.0) L 08/01/19 00:44 Hct 35.6 % (36.0-47.0) L 08/01/19 00:44 MCV 78.2 fL (78.0-98.0) 08/01/19 00:44 Plt Count 319 thou/uL (130-400) 08/01/19 00:44 Neutrophils % 57.7 % (42.0-75.0) 08/01/19 00:44 Sodium 137 mmol/L (136-145) 08/01/19 00:44 Potassium 3.6 mmol/L (3.5-5.1) 08/01/19 00:44 Chloride 105 mmol/L (98-107) 08/01/19 00:44 Carbon Dioxide 25 mmol/L (22-29) 08/01/19 00:44 BUN 10 mg/dL (7.0-18.7) 08/01/19 00:44 Creatinine 0.84 mg/dL (0.6-1.1) 08/01/19 00:44 Glucose 84 mg/dL (70-105) 08/01/19 00:44 Calcium 9.5 mg/dL (7.8-10.44) 08/01/19 00:44 Total Bilirubin 0.2 mg/dL (0.2-1.2) 08/01/19 00:44 AST 24 U/L (5-34) 08/01/19 00:44 ALT 71 U/L (8-55) H 08/01/19 00:44 Alkaline Phosphatase 102 U/L (40-150) 08/01/19 00:44 Serum Total Protein 7.0 g/dL (6.0-8.3) 08/01/19 00:44 Albumin 4.0 g/dL (3.5-5.0) 08/01/19 00:44 - Radiology Interpretation CT scan - abdomen Status: image reviewed by me, report reviewed by me (No acute findings. 5.5 cm mass w/n the left side pelvic cavity. Uncertain wheter this is a uterine leiomyoma fundus fibroid that has grown since 2014, or represents ovarian mass.) US - abdomen Status: pending (Reports pending. Comments state lft ovarian mass with septations. No free fluid.) FMR H&P: A/P - Problem List (1) Intractable nausea and vomiting Current Visit: Yes Status: Acute Code(s): R11.2 - NAUSEA WITH VOMITING, UNSPECIFIED (2) PTSD (post-traumatic stress disorder) Current Visit: No Status: Chronic Code(s): F43.10 - POST-TRAUMATIC STRESS DISORDER, UNSPECIFIED (3) Asthma Current Visit: No Status: Chronic Code(s): J45.909 - UNSPECIFIED ASTHMA, UNCOMPLICATED (4) JAMES (obstructive sleep apnea) Current Visit: No Status: Chronic Code(s): G47.33 - OBSTRUCTIVE SLEEP APNEA (ADULT) (PEDIATRIC) (5) HTN (hypertension) Current Visit: No Status: Chronic Code(s): I10 - ESSENTIAL (PRIMARY) HYPERTENSION (6) Depression Current Visit: No Status: Chronic Code(s): F32.9 - MAJOR DEPRESSIVE DISORDER , SINGLE EPISODE, UNSPECIFIED (7) PCOS (polycystic ovarian syndrome) Current Visit: No Status: Chronic Code(s): E28.2 - POLYCYSTIC OVARIAN SYNDROME - Plan 33yo CF h/o PCOS, morbid obesity, HLD, HTN, PCOS, SANDERSON, JAMES, Asthma, and depression presents for intractable n/v x3 days. #Intractable n/v likely 2/2 gastroparesis - sxs for 3d, minimal relief with phenergan and zofran - no BM in at least 5 days, associated LLQ abd pain and mildly TTP - Mag Citrate x1 for constipation, will continue home bowel regimen - Erythromycin for gastroparesis - reglan contraindicated with psych medications and risk for SS - continue zofran and phenergan - IV protonix daily - LR @ 125cc/hr - Clear liquids to adv as tolerated - Will check TSH #Pelvic mass - CT abd/pelvis demonstrated 5.5x4x4.5cm soft tissue mass, likely L posterior uterine body, larger as compared to study from 09/16/14 - Pelvic US comments - complex Left ovarian cyst, official read pending - Corresponding to LLQ pain - Consider INTENSIVE CARE MEDICINE SPECIALIST consult/referral - APAP for pain, will monitor #Depression/PTSD - cont home meds #HTN - cont home lisinopril, monitor #Asthma - cont home singular and Proventil prn, monitor #JAMES - CPAP at night #PCOS - cont home metformin VTE: Lovenox Diet: Clear liquids to adv as iram Code: Full Disposition/LOS: Admit to medical obs. Monitor n/v and BM. Anticipate hospitalization <48hours. FMR H&P: Upper Level - Pertinent history I was present with the intern retail while he obtained the above HPI. I scribed for him. I made edits as needed. - Pertinent findings Pt is morbidly obese. Abdomen tender to palpation on the left side. No mass appreciated. Pain more in LUQ. Hard to fully auscultate heart and lungs due to body habitus. - Plan Date/Time: 08/01/19 0305 IPascual, PGY-3 have evaluated this patient and agree with findings/plan as outlined by intern retail resident. Pertinent changes/additions are listed here. Pt been having intractable vomiting for last few days. May have some gastroparesis aspect. Will continue phenegran, zofran. Will try erythromycin for gastroparesis. Did not try reglan as has lots of interactions with her multiple depression and PTSD medications. Pt also has not had BM in 5 days. Will tx her for constipation and see if this helps with some of the pain. Pt has possible uterine fibroid vs ovarian mass. Will await official read on the [place] Will consider Warehouse Coordinator consult later today. Could be causing some of the abdominal pain. Addendum - Attending - Attending Attestation Date/Time: 08/01/19 1032 I personally evaluated the patient and discussed the management with Dr. Merchant I agree with the History, Examination, Assessment and Plan documented above with any addition or exceptions noted below. 33 yo morbidly obese female Patient well known to [facility] patient on caloric restricted high protein diet in anticipation of hyperbaric surgery per Dr Ibarra later this month. Patient to ER several times recently and admitted now with refractory N/V last BM 5 days ago described as loose concern with fecal impaction. Patient recent removal re-insertion nexplanon. Patient with incidental finding of LLQ mass on CT sono with complex ovarian mass 5.5 cm no s/ s torsion rec ovarian CA tumor marker and INTENSIVE CARE MEDICINE SPECIALIST consult . Notify Dr Ibarra of admit as courtesy. Otherwise expectant management ( obstipation, ileus questionable gastroparesis) with IV hydration,antiemetic, clear liquid, no s/s SBO would check lipase if not done with initial lab. Patient abdomen nonsurgical and endorsing more pain to LLQ.
[2019-08-01] MEDS ORDERED: Ondansetron ODT 4 MG TAB PO PRN (04:42)
[2019-08-01] MEDS ORDERED: Senokot S 8.6-50 MG TAB PO PRN (04:42)
[2019-08-01] MEDS ORDERED: Acetaminophen 325 MG TAB PO PRN (04:42)
[2019-08-01] MEDS ORDERED: Ondansetron PF 4 MG/2 ML Vial IVP PRN (04:42)
[2019-08-01] MEDS ORDERED: Calcium Carbonate 500 MG ChewTAB PO PRN (04:42)
[2019-08-01] MEDS ORDERED: Acetaminophen 650 MG Suppository PR PRN (04:42)
[2019-08-01] MEDS ORDERED: Promethazine 25 MG TAB PO PRN (04:42)
[2019-08-01] MEDS ORDERED: Acetaminophen 325 MG TAB ONE (04:57)
[2019-08-01] MEDS ORDERED: Magnesium Citrate 300 ML BOT PO SCH (05:15)
[2019-08-01] MEDS: Lactated Ringer's 1,000 ML IV SCH ×2 (06:39→13:45)
[2019-08-01] MEDS: Erythromycin 500 MG in Sodium Chloride 0.9% 250 ML 250 ML IVPB SCH ×3 (06:42→22:26)
[2019-08-01] MEDS ORDERED: Magnesium Citrate 300 ML BOT ONE (07:25)
[2019-08-01] MEDS ORDERED: Pantoprazole 40 MG VIAL ONE (07:36)
[2019-08-01 07:40] VITALS: BMI 70.3
[2019-08-01] MEDS: Pantoprazole 40 MG VIAL IVP SCH (07:48)
--- NOTE | 2019-08-01 08:14 | ULT ---
PRELIMINARY REPORT/[facility]/EMERGENCY AFTER HOURS PROCEDURE EXAM: US Pelvis Complete, Transabdominal and US Pelvis, Transvaginal US Duplex Artery or Vein of the Abdominal and/or Reproductive Organs, Limited Ovaries EXAM DATE/TIME: 08/01/2019 1:02 AM CLINICAL HISTORY: 33 years old, female; Other: N/v, diarrhea; Pelvic pain; Patient HX: Llq pain x 3 days TECHNIQUE: Imaging protocol: Real-time transabdominal and transvaginal pelvic ultrasound (complete) with image d ocumentation. Transvaginal imaging was used for better evaluation of the endometrium and adnexa. Real-time duplex ultrasound scan of the arterial or venous flow with rodriguez scale, color Dopple r flow and spectral waveform analysis with image documentation. Limited duplex exam focused on the ov federico. Duplex images required to evaluate for torsion and other vascular conditions. COMPARISON: No relevant prior studies available. FINDINGS: Transabdominal ultrasound did not reveal detailed visualization of endometrium. Right ovary was also not visualized on transabdominal ultrasound. Therefore a transvaginal ultrasound was performed for further evaluation. Duplex ultrasound scan with color Doppler flow and spectral waveform analysis was also performed for evaluation of pelvic and ovarian blood flow and torsion. Uterus/cervix: No acute findings. Normal endometrial stripe thickness. No myometrial mass. Right adnexa: Right ovary is not visualized. Left adnexa: Possible septated left ovarian cyst measuring up to 4 cm. No acute findings. Normal duplex of the ovary. No evidence of torsion. Free fluid: None. Bladder: Decompressed. Unremarkable as visualized. IMPRESSION: No acute findings. Possible septated left ovarian cyst; recommend followup. Thank you for allowing us to participate in the care of your patient. Dictated and Authenticated by: Grover Castro MD 08/01/2019 2:55 AM Central Time ([place] & [place]) FINAL REPORT PELVIC ULTRASOUND: TECHNIQUE: Transabdominal and endovaginal ultrasound of the pelvis performed. FINDINGS: A 3 to 4 cm septated cyst, left adnexa, consistent with a complex left ovarian cyst. Right ovary not identified. No free fluid. I am in agreement with the preliminary report. CODE QA POS: OFF
[2019-08-01] MEDS: Enoxaparin Sodium 40 MG/0.4 ML SYRINGE SC SCH (12:41)
[2019-08-01] MEDS: Morphine 2 MG/ML SYRINGE SLOW IVP PRN ×2 (13:45→20:54)
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
[2019-08-01] MEDS ORDERED: PROVENTIL INHALER 6.7 G (200 INHALATIONS) INH PRN (17:25)
[2019-08-01] MEDS ORDERED: Albuterol Sulfate 2.5 mg/3 ml Neb NEB PRN (17:25)
[2019-08-01] MEDS ORDERED: Melatonin 3 MG TAB PO PRN (17:44)
[2019-08-01] MEDS: Mometasone/Formoterol 120 PUFF INHALER INH SCH (18:18)
[2019-08-01] MEDS: metFORMIN 500 MG TAB PO SCH (20:54)
[2019-08-01] MEDS ORDERED: Topiramate 100 MG TAB PO SCH (21:00)
[2019-08-01] MEDS ORDERED: Montelukast Sodium 10 mg Tablet PO SCH (21:00)
[2019-08-01] MEDS ORDERED: Prazosin HCl 1 MG CAP PO SCH (21:00)
[2019-08-01] MEDS ORDERED: Bupropion 150 MG XL TAB PO SCH ×2 (21:00→21:15)
[2019-08-01] MEDS ORDERED: DULoxetine 60 MG CAP PO SCH (21:00)
[2019-08-01] MEDS ORDERED: Lisinopril 5 MG TAB PO SCH (21:00)
[2019-08-01] MEDS ORDERED: Bupropion 100 MG SR TAB PO SCH (21:15)
[2019-08-02] MEDS: Erythromycin 500 MG in Sodium Chloride 0.9% 250 ML 250 ML IVPB SCH (06:16)
[2019-08-02] MEDS: Mometasone/Formoterol 120 PUFF INHALER INH SCH (06:56)
[2019-08-02] MEDS: metFORMIN 500 MG TAB PO SCH (08:22)
[2019-08-02] MEDS: Pantoprazole 40 MG VIAL IVP SCH (08:24)
[2019-08-02] MEDS: Enoxaparin Sodium 40 MG/0.4 ML SYRINGE SC SCH (08:24)
[2019-08-02] MEDS: Morphine 2 MG/ML SYRINGE SLOW IVP PRN (08:28)
[2019-08-02] MEDS ORDERED: Loratadine 10 MG TAB PO SCH (09:00)
--- NOTE | 2019-08-02 10:37 | PDOC.FM ---
- Subjective Subjective: Pt feeling well. Reports multiple BMs overnight. Pain has improved and so has nausea. No vomiting since admission. No fever/chills. No new problems - Objective Vital Signs & Weight: Vital Signs (12 hours) Temp Pulse Resp BP Pulse Ox 08/02/19 08:00 98.3 F 08/02/19 07:47 98.3 F 90 20 113/69 94 L 08/02/19 04:18 98.3 F 95 16 120/71 96 08/02/19 00:37 98.5 F 98 16 101/68 95 Weight Weight 158 kg I&O: 08/01/19 08/02/19 08/03/19 06:59 06:59 06:59 Intake Total 1200 240 Balance 1200 240 Result Diagrams: 08/01/19 00:44 08/01/19 00:44 Phys Exam - Physical Examination Constitutional: NAD HEENT: moist MMs, sclera anicteric Neck: supple, full ROM Respiratory: no wheezing, clear to auscultation bilateral Cardiovascular: RRR, no significant murmur Gastrointestinal: soft, no distention Musculoskeletal: pulses present Neurological: normal sensation, moves all 4 limbs Psychiatric: normal affect, A&O x 3 Skin: no rash, normal turgor Dx/Plan (1) Intractable nausea and vomiting Code(s): R11.2 - NAUSEA WITH VOMITING, UNSPECIFIED Status: Acute (2) Anxiety Code(s): F41.9 - ANXIETY DISORDER, UNSPECIFIED Status: Acute (3) Dehydration Code(s): E86.0 - DEHYDRATION Status: Acute (4) Viral gastroenteritis Code(s): A08.4 - VIRAL INTESTINAL INFECTION, UNSPECIFIED Status: Acute (5) Asthma Code(s): J45.909 - UNSPECIFIED ASTHMA, UNCOMPLICATED Status: Chronic (6) Depression Code(s): F32.9 - MAJOR DEPRESSIVE DISORDER, SINGLE EPISODE, UNSPECIFIED Status : Chronic (7) HTN (hypertension) Code(s): I10 - ESSENTIAL (PRIMARY) HYPERTENSION Status: Chronic (8) JAMES (obstructive sleep apnea) Code(s): G47.33 - OBSTRUCTIVE SLEEP APNEA (ADULT) (PEDIATRIC) Status: Chronic (9) PCOS (polycystic ovarian syndrome) Code(s): E28.2 - POLYCYSTIC OVARIAN SYNDROME Status: Chronic (10) PTSD (post-traumatic stress disorder) Code(s): F43.10 - POST-TRAUMATIC STRESS DISORDER, UNSPECIFIED Status: Chronic - Plan Plan: Intractable n/v 2/2 viral gastroenteritis and constipation A- constipation resolved, pt will likely have some symptoms for an aditional week or so but her Sx are controlled and she tolerates good PO intake. P- will plan for DC today with Rx for phenergan prn and bowel regimen prn as well Complicated L adnexal cyst A- PLATFORM MATERIAL HANDLING SUPERVISOR consulted and recs are much appreciated P- f/u with [facility] outpt and will possibly have joint surgeries on the Depression/PTSD - cont home meds HTN - cont home lisinopril, monitor Asthma - cont home singular and Proventil prn, monitor JAMES - CPAP at night PCOS - cont home metformin Code: Full Addendum - Attending - Attending Attestation Date/Time: 08/02/19 5520 I personally evaluated the patient and discussed the management with Dr. Fisher. I agree with the History, Examination, Assessment and Plan documented above with any addition or exceptions noted below.
--- NOTE | 2019-08-02 10:52 | PDOC.EVN ---
Event Note - Event Note Event Note: Ciara is doing better this morning but only able to tolerate liquids at this point. Concerned about protein uptake for upcoming gastric sleeve surgery with Dr Godinez. Reports she has appt with rheumatology today at 1500. No other concerns. PE: Temp: 98.3, Pulse: 90, Resp: 20, SpO2 94% on RA, BP: 113/69 Alert and oriented, laying in bed No respiratory distress Plan: Reviewed Dr Fisher's plan. Recommend trying Ensure shakes for protein and nutritional supplementation while pt not tolerating solids. Follow up with Dr Godinez regarding surgery scheduled for 08/08/19. Follow up with [facility] regarding 5.5cm pelvic mass. Likely to be removed with gastric sleeve surgery. Marli Francis MD PGY-2
[2019-08-02 13:56] VITALS: BP 137/77; TEMP 98
[2019-08-02] MEDS ORDERED: Bupropion 150 MG XL TAB PO SCH (21:00)
[2019-08-02] MEDS ORDERED: Bupropion 100 MG SR TAB PO SCH (21:00)
--- NOTE | 2019-08-03 04:29 | DIS ---
DATE OF ADMISSION: 08/01/2019 DATE OF DISCHARGE: 08/02/2019 ADMITTING ATTENDING: Javier Murray MD RESIDENT: Woo Fisher MD CONSULTS: None. PROCEDURES PERFORMED: 1. On 07/31/2019, abdomen and pelvis CT scan. Impression; no acute findings, 5.5 cm mass within the left side of the pelvic cavity. Uncertain whether this is uterine leiomyoma, fundus fibroid that has grown since 2013, represents an ovarian mass. 2. On 08/01/2019, pelvis ultrasound. Impression; possible septated left ovarian cyst, recommend followup, 3 to 4 cm septated cyst, left adnexal consisting with complex left ovarian cyst. Right ovary not identified. No free fluid. DISCHARGE MEDICATIONS: 1. Prazosin 10 mg p.o. q.p.m. 2. Albuterol sulfate 2.5 mg nebulized q.6 hours p.r.n. 3. Bupropion 300 mg tab ER 24 hours, 400 mg p.o. at bedtime. 4. Diphenhydramine 50 mg p.o. q.6 hours p.r.n. 5. Lisinopril 5 mg p.o. q.p.m. 6. Topiramate 200 mg p.o. q.p.m. 7. Promethazine 25 mg p.o. daily p.r.n. 8. Ondansetron 8 mg p.o. t.i.d. p.r.n. 9. Nortriptyline 50 mg p.o. at bedtime. 10. Butalbital/acetaminophen one tab p.o. q.6 hours p.r.n. 11. Montelukast 10 mg p.o. q.p.m. 12. Duloxetine 120 mg p.o. q.p.m. 13. Symbicort two inhales b.i.d. 14. Vitamin D 4000 units p.o. daily. 15. Diclofenac one tablet p.o. as directed. 16. Nexplanon. 17. Metformin 500 mg p.o. b.i.d. 18. Fexofenadine 180 mg p.o. daily. 19. Diclofenac potassium 50 mg p.o. t.i.d. p.r.n. 20. Melatonin 10 mg p.o. at bedtime. 21. Calcium citrate 950 mg p.o. daily. 22. Brexpiprazole 1 mg p.o. q.p.m. 23. Tylenol regular strength one tablet p.o. q.4 hours p.r.n. 24. Ensure protein liquid 1 to 2 cans p.o. daily. 25. Senokot 2 tablets p.o. b.i.d. p.r.n. DISCONTINUED MEDICATIONS: None. PRIMARY DIAGNOSES: Intractable nausea and vomiting and abdominal pain secondary to viral gastroenteritis and constipation. SECONDARY DIAGNOSES: Complicated left adnexal cyst, depression, post-traumatic stress disorder, hypertension, asthma, obstructive sleep apnea, polycystic ovary syndrome. HISTORY OF PRESENT ILLNESS/HOSPITAL COURSE: This is a 33-year-old female, who presented to the ER and was admitted for intractable nausea, vomiting, abdominal pain, which was initially thought to be secondary to gastroparesis, but later thought to be secondary to viral gastroenteritis and constipation as patient had not had bowel movement in five days. The patient was placed on bowel regimen and had nausea controlled with Phenergan and Zofran. The patient did not vomit throughout the entire admission and quickly tolerated liquid diet. Additionally, abdomen was imaged, which showed a left pelvic mass and so patient had pelvic ultrasound done, which showed a complicated left adnexal cyst and so, Gynecology was consulted. Gynecology recommendations for left adnexal cyst were to follow up outpatient and the patient should potentially have cyst removed with post surgery as patient had plans for gastric sleeve surgery on the August 08, 2019. The patient was discharged in stable condition. DISPOSITION: Stable. DISCHARGE INSTRUCTIONS: 1. Location: Home. 2. Activity: As tolerated. 3. Diet: Full liquid, advanced to solids if tolerated. 4. Followup: Followup with Marli Francis in 7 days, with Dr. Godinez in 7 days, and with [facility] in 1 to 3 days. Job ID: [id number]
== END 2019-08-02 14:13 | disposition home or self-care (01) ==
LOC: ERS 20:20 → T4-B 08-01 03:15 → ERHOLD 08-01 03:51 → T4-B 08-01 12:30
PROVIDERS: ADMIT Student in an Organized Health Care Education/Training Program; ATTEND Student in an Organized Health Care Education/Training Program
DX: A08.4 Viral intestinal infection, unspecified (principal); K59.00 Constipation, unspecified; F32.9 Major depressive disorder, single episode, unspecified; F43.10 Post-traumatic stress disorder, unspecified; I10 Essential (primary) hypertension; J45.909 Unspecified asthma, uncomplicated; G47.33 Obstructive sleep apnea (adult) (pediatric); E28.2 Polycystic ovarian syndrome; K31.84 Gastroparesis; E78.5 Hyperlipidemia, unspecified; E66.01 Morbid (severe) obesity due to excess calories; Z68.45 Body mass index [BMI] 70 or greater, adult; Z79.51 Long term (current) use of inhaled steroids; Z79.84 Long term (current) use of oral hypoglycemic drugs; Z79.899 Other long term (current) drug therapy; Z88.1 Allergy status to other antibiotic agents; Z88.2 Allergy status to sulfonamides; Z88.8 Allergy status to other drugs, medicaments and biological substances
CPT/HCPCS: 74176; 76830; 76856; 82378; 83690; 84702; 86301; 87324; 87449; 94640 ×2; 96361 ×2; 96365; 96366 ×2; 96372; 96374; 96375 ×3; 96376 ×2; 99285; G0378 ×3; 36415; 80053; 84443; 85025; C9113; J1364; J1650; J1885; J2270; J2405; J7050; Q0169

== ENCOUNTER 2019-08-01 14:00 | Inpatient (IN) | payer MEDICARE, MEDICAID ==
[2019-08-04 15:00] VITALS: BMI 68.8
[2019-08-04 16:19] LABS: Hemoglobin A1c 5.1 % (4.0-6.0)
--- NOTE | 2019-08-04 16:20 | RAD ---
TWO VIEW CHEST: 08/04/19 INDICATION: Preoperative evaluation. FINDINGS: The lungs are clear. There is no effusion or pneumothorax. Mild elevation of the left hemidiaphragm. Cardiac silhouette is within normal limits of size. IMPRESSION: No focal consolidation. POS: C
[2019-08-04 16:35] LABS: ALT (SGPT) 29 U/L (8-55); AST (SGOT) 14 U/L (5-34); Albumin 4.3 g/dL (3.5-5.0); Alkaline Phosphatase 105 U/L (40-150); Bilirubin, Direct 0.1 mg/dL (0.1-0.3); Bilirubin, Total 0.2 mg/dL (0.2-1.2); Protein, Total 7.2 g/dL (6.0-8.3)
[2019-08-08] MEDS ORDERED: Midazolam HCl 2 mg/2 ml Vial ONE ×2 (06:29→07:26)
[2019-08-08] MEDS ORDERED: Fentanyl 100 MCG/2 ML VIAL ONE ×3 (06:29→10:33)
[2019-08-08] MEDS ORDERED: Bupivacaine/Epinephrine 0.25% 30 ML VIAL ONE (06:35)
[2019-08-08] MEDS ORDERED: Levofloxacin 500 mg/D5W 100 ml Premix Bag ONE (06:57)
[2019-08-08] MEDS ORDERED: Heparin 5,000 UNITS/ML VIAL ONE (06:57)
[2019-08-08] MEDS ORDERED: Albuterol Sulfate 2.5 mg/3 ml Neb ONE (07:10)
[2019-08-08] MEDS ORDERED: Ondansetron PF 4 MG/2 ML Vial ONE (09:28)
[2019-08-08] MEDS ORDERED: Naloxone HCl 0.4 mg/ml Vial IV PRN (10:33)
[2019-08-08] MEDS ORDERED: diphenhydrAMINE 50 MG/ML VIAL IVP PRN ×2 (10:33→13:20)
[2019-08-08] MEDS ORDERED: diphenhydrAMINE 50 MG/ML VIAL IM PRN (10:33)
[2019-08-08] MEDS ORDERED: diphenhydrAMINE 25 MG CAP PO PRN (10:33)
[2019-08-08] MEDS ORDERED: fentaNYL Citrate/PF 2,000 MCG in Sodium Chloride 0.9% 60 ML IV PRN (10:33)
[2019-08-08] MEDS ORDERED: Zolpidem Tartrate 5 MG TAB PO PRN (10:33)
[2019-08-08] MEDS ORDERED: Communication Order-Pharmacy FS SCH (10:45)
--- NOTE | 2019-08-08 12:05 | OP ---
DATE OF PROCEDURE: 08/08/2019 PREOPERATIVE DIAGNOSES: 1. Super morbid obesity with a body mass index of 68. 2. Hypertension. 3. Obstructive sleep apnea. POSTOPERATIVE DIAGNOSES: 1. Super morbid obesity with a body mass index of 68. 2. Hypertension. 3. Obstructive sleep apnea. 4. Paraesophageal hiatal hernia. PROCEDURES PERFORMED: 1. Laparoscopic sleeve gastrectomy with [place] staple line reinforcements and 38-[place] bougie. 2. Paraesophageal hiatal hernia repair without fundoplication. 3. Esophagogastroduodenoscopy. ANESTHESIA: General. ESTIMATED BLOOD LOSS: Minimal. COMPLICATIONS: None. SPECIMEN: Stomach. FINDINGS: Hiatal hernia. DESCRIPTION OF PROCEDURE: The patient was taken to the operating room and laid supine on the operating room table. After general anesthetic was obtained, bilateral arms and legs were double strapped to bariatric table. OG tube was used to decompress the stomach. The abdomen was prepped and draped in a sterile fashion. Left subcostal 5-mm Optiview trocar was placed in usual fashion and high-flow pneumoperitoneum was obtained. Right and left abdominal 12-mm ports as well as right subcostal 5-mm port were placed under direct visualization. The patient was placed in reverse Trendelenburg position. A 5-mm incision was made at the xiphoid and Phoebe was used to raise the liver off the GE junction. Short gastrics were taken down from mid body of stomach to left jemal of diaphragm. Left jemal, posterior fundus, and angle of His were completely dissected revealing a paraesophageal small hiatal hernia. A circumferential dissection of the esophagus was performed. One Ethibond suture and the tie knot was used to close the crural defect posteriorly. This was done after the 38 bougie was placed. Short gastrics were taken down to a distance of 6 cm proximal to the pylorus. A 38 bougie was brought in its tip and left in the antrum of the stomach. Multiple loads of an echelon stapling device were used to perform the sleeve. The first was fired up at a distance of 6 cm proximal to the pylorus angled up towards the incisura. The first load was a green load. The rest are all gold loads and the stomach were completely transected at the angle of His. The stomach was removed from the left abdominal incision. This fascial defect was closed using GraNee needle and 0 Vicryl tie. All port sites were infiltrated using local anesthetic. EGD scope was passed through esophagus and stomach to the level of the duodenum without obstruction. No stricture at the incisura. No hold up at the diaphragmatic hiatus or the GE junction. No air leakage through the staple line. EGD scope was used to decompress the stomach. It was pulled and removed. All port sites were removed under direct visualization without bleeding. Pneumoperitoneum was let down. All incisions were irrigated and closed using 4-0 Monocryl and Dermabond. The patient was sent to Recovery in stable condition. All instrument counts, needle counts, and lap counts were correct. Job ID: [id number]
[2019-08-08] MEDS ORDERED: Hydrocodone-Acetamin 15 ML UDCUP PO PRN (13:20)
[2019-08-08] MEDS ORDERED: hydrALAZINE 20 MG/ML VIAL SLOW IVP PRN (13:20)
[2019-08-08] MEDS ORDERED: PROVENTIL INHALER 6.7 G (200 INHALATIONS) INH PRN (13:20)
[2019-08-08] MEDS ORDERED: Ondansetron PF 4 MG/2 ML Vial IVP PRN (13:20)
[2019-08-08] MEDS ORDERED: Dextrose 5% in Water 1,000 ML IV PRN (13:20)
[2019-08-08] MEDS ORDERED: Dextrose 50% Abboject 50 ML SYRINGE SLOW IVP PRN (13:20)
[2019-08-08] MEDS: Ondansetron PF 4 MG/2 ML Vial IVP PRN (13:33)
[2019-08-08] MEDS: D5 1/2 NS w/20 mEq KCL 1,000 ML IV SCH ×2 (13:33→20:20)
[2019-08-08] MEDS: Promethazine HCl 25 MG/ML VIAL IM PRN ×2 (14:59→22:49)
[2019-08-08] MEDS: Acetaminophen 1,000 MG in Premix Bag 1 BAG IVPB SCH (17:33)
[2019-08-08] MEDS: Mometasone/Formoterol 120 PUFF INHALER INH SCH (18:37)
[2019-08-08] MEDS ORDERED: Prazosin HCl 1 MG CAP PO SCH (21:00)
[2019-08-08] MEDS ORDERED: busPIRone HCl 10 MG TAB PO SCH (21:00)
[2019-08-08] MEDS ORDERED: DULoxetine 60 MG CAP PO SCH (21:00)
[2019-08-08] MEDS ORDERED: Lisinopril 5 MG TAB PO SCH (21:00)
[2019-08-08] MEDS ORDERED: Montelukast Sodium 10 mg Tablet PO SCH (21:00)
[2019-08-08] MEDS ORDERED: Enoxaparin Sodium 40 MG/0.4 ML SYRINGE SC SCH (21:00)
[2019-08-09] MEDS: Acetaminophen 1,000 MG in Premix Bag 1 BAG IVPB SCH ×3 (00:16→12:06)
[2019-08-09] MEDS: Promethazine HCl 25 MG/ML VIAL IM PRN (04:33)
[2019-08-09] MEDS: D5 1/2 NS w/20 mEq KCL 1,000 ML IV SCH (05:51)
[2019-08-09 07:11] LABS: #Eosinphils 0.1 thou/uL (0.0-0.7); #Lymphocytes 1.4 thou/uL (1.20-3.40); #Monocytes 0.5 thou/uL (0.11-0.59); #Neutrophils 4.6 thou/uL (1.40-6.50); %Basophils 0.5 % (0.0-1.0); %Eosinophils 1.1 % (0.0-10.0); %Lymphocytes 20.8 % (21.0-51.0); %Monocytes 6.9 % (0.0-10.0); %Neutrophils 70.7 % (42.0-75.0); Hemoglobin 10.9 g/dL (12.0-16.0); Mean Corpuscular Hemoglobin 24.8 pg (27.0-31.0); Mean Corpuscular Volume 77.3 fL (78.0-98.0); Mean Platelet Volume 7.8 fL (7.4-10.4); Platelet Count 234 thou/uL (130-400); RBC Distribution Width 14.1 % (11.5-14.5); White Blood Cell (WBC) Count 6.6 thou/uL (4.8-10.8)
[2019-08-09 07:29] LABS: Anion Gap 11 mmol/L (10-20); BUN (Urea Nitrogen) 8 mg/dL (7.0-18.7); Calc. Creatinine Clearance 255 mL/min (70-130); Calcium 9.1 mg/dL (7.8-10.44); Carbon Dioxide 21 mmol/L (22-29); Chloride 108 mmol/L (98-107); Estimated GFR-MDRD 87; Glucose 88 mg/dL (70-105); Potassium 3.8 mmol/L (3.5-5.1); Sodium 136 mmol/L (136-145)
[2019-08-09] MEDS: Mometasone/Formoterol 120 PUFF INHALER INH SCH (08:00)
[2019-08-09 08:11] VITALS: TEMP 98.1
[2019-08-09] MEDS: Ondansetron PF 4 MG/2 ML Vial IVP PRN (08:16)
[2019-08-09] MEDS ORDERED: Pantoprazole 40 MG VIAL IVP SCH (09:00)
--- NOTE | 2019-08-09 12:04 | DIS ---
DATE OF ADMISSION: 08/08/2019 DATE OF DISCHARGE: 08/09/2019 ADMITTING DIAGNOSIS: Morbid obesity. DISCHARGE DIAGNOSES: 1. Morbid obesity. 2. Hiatal hernia. PROCEDURES PERFORMED: Laparoscopic sleeve gastrectomy and hiatal hernia repair without mesh. CONDITION ON DISCHARGE: Improved. STAFF: Hector Godinez MD HOSPITAL COURSE: On postop day #1, the patient's overnight nausea has resolved. She is ambulatory and doing better. She is going to be discharged home today. Prescriptions for Lortab, elixir, Zofran, pantoprazole were already sent to her pharmacy. Her outpatient medicines, she is going to take as normal. Job ID: [id number]
[2019-08-09 12:06] VITALS: BP 135/85
== END 2019-08-09 15:00 | disposition home or self-care (01) | DRG 621 ==
LOC: SURG A 08-08 05:47
PROVIDERS: ADMIT Surgery; ATTEND Surgery
PROC: 0DB64Z3 Excision of Stomach, Percutaneous Endoscopic Approach, Vertical (ICD-10-PCS; principal; 2019-08-08)
PROC: 0BQT4ZZ Repair Diaphragm, Percutaneous Endoscopic Approach (ICD-10-PCS; 2019-08-08)
DX: E66.01 Morbid (severe) obesity due to excess calories (principal); I10 Essential (primary) hypertension; K44.9 Diaphragmatic hernia without obstruction or gangrene; G47.33 Obstructive sleep apnea (adult) (pediatric); I25.10 Atherosclerotic heart disease of native coronary artery without angina pectoris; J44.9 Chronic obstructive pulmonary disease, unspecified; E11.9 Type 2 diabetes mellitus without complications; G43.909 Migraine, unspecified, not intractable, without status migrainosus; F32.9 Major depressive disorder, single episode, unspecified; F41.9 Anxiety disorder, unspecified; E28.2 Polycystic ovarian syndrome; N32.81 Overactive bladder; Z68.44 Body mass index [BMI] 60.0-69.9, adult; Z86.73 Personal history of transient ischemic attack (TIA), and cerebral infarction without residual deficits; Z88.1 Allergy status to other antibiotic agents; Z88.2 Allergy status to sulfonamides; Z88.8 Allergy status to other drugs, medicaments and biological substances
CPT/HCPCS: 36415; 71046; 80048; 80076; 83036; 85025; 88307; 88312; 94760; C9113; J0131; J1644; J1650; J1956; J2250; J2405; J2550; J3010; J3490; J7611

== ENCOUNTER 2019-08-04 13:51 | Outpatient (CLI) | payer MEDICARE, MEDICAID | END 2019-08-04 13:52 | disposition home or self-care (01) | LOC: LABBT 13:51 | PROVIDERS: ATTEND Surgery | DX: Z01.818 Encounter for other preprocedural examination (principal); G47.30 Sleep apnea, unspecified; I10 Essential (primary) hypertension; Z68.45 Body mass index [BMI] 70 or greater, adult | CPT/HCPCS: 71046; 93005; 93010 ==

== ENCOUNTER 2019-08-14 19:42 | Emergency (ER) | payer MEDICARE, OTHER ==
[2019-08-14] MEDS ORDERED: Ondansetron ODT 4 MG TAB ONE (19:53)
[2019-08-14 20:16] LABS: #Eosinphils 0.2 thou/uL (0.0-0.7); #Lymphocytes 1.5 thou/uL (1.20-3.40); #Monocytes 0.3 thou/uL (0.11-0.59); #Neutrophils 4.1 thou/uL (1.40-6.50); %Basophils 0.5 % (0.0-1.0); %Eosinophils 3.2 % (0.0-10.0); %Lymphocytes 24.6 % (21.0-51.0); %Monocytes 4.6 % (0.0-10.0); %Neutrophils 67.1 % (42.0-75.0); Hemoglobin 11.4 g/dL (12.0-16.0); Mean Corpuscular HGB CONC 31.7 g/dL (32.0-36.0); Mean Corpuscular Hemoglobin 24.9 pg (27.0-31.0); Mean Corpuscular Volume 78.5 fL (78.0-98.0); Mean Platelet Volume 7.5 fL (7.4-10.4); Platelet Count 272 thou/uL (130-400); RBC Distribution Width 14.1 % (11.5-14.5); White Blood Cell (WBC) Count 6.2 thou/uL (4.8-10.8)
[2019-08-14 20:44] LABS: Anion Gap 11 mmol/L (10-20); BUN (Urea Nitrogen) 7 mg/dL (7.0-18.7); Calc. Creatinine Clearance 0 mL/min (70-130); Calcium 9.6 mg/dL (7.8-10.44); Carbon Dioxide 25 mmol/L (22-29); Chloride 105 mmol/L (98-107); Estimated GFR-MDRD Greater than 90; Glucose 91 mg/dL (70-105); Potassium 3.6 mmol/L (3.5-5.1); Sodium 137 mmol/L (136-145)
== END 2019-08-14 21:51 | disposition home or self-care (01) ==
LOC: ERS 19:42
DX: K64.9 Unspecified hemorrhoids (principal); I10 Essential (primary) hypertension; J45.909 Unspecified asthma, uncomplicated; E78.5 Hyperlipidemia, unspecified; E66.01 Morbid (severe) obesity due to excess calories; G43.909 Migraine, unspecified, not intractable, without status migrainosus; G47.30 Sleep apnea, unspecified; F32.9 Major depressive disorder, single episode, unspecified; F41.9 Anxiety disorder, unspecified; F43.10 Post-traumatic stress disorder, unspecified; Z79.899 Other long term (current) drug therapy
CPT/HCPCS: 36415; 80048; 85025; 99283; Q0162

== ENCOUNTER 2019-08-28 14:27 | Outpatient (CLI) | payer MEDICARE, MEDICAID ==
--- NOTE | 2019-08-29 11:05 | MRI ---
LEFT KNEE MRI WITHOUT IV CONTRAST: Date: 08/28/19 HISTORY: Lateral meniscal tear, knee pain. COMPARISON: 11/02/18. FINDINGS: Distended joint effusion and dilatation of the suprapatellar recess. Extensive complex tear with a fl ap component involving the lateral meniscus including the posterior horn extending well into the body and to the junction of the body and anterior horn. Irregular minimally complex tear of the posterior horn of the medial meniscus. Scattered metallic susceptibility artifact, evidence for prior surgery. Anterior and posterior cruciate ligaments and collateral ligament complexes appear intact. Collatera l ligament complexes are unremarkable. Quadriceps and patellar tendons are intact. No significant acu te abnormal marrow signal. Exam is limited because of large body habitus. IMPRESSION: 1. Extensive complex lateral meniscal tear including a flap component. 2. Small, irregular, minimally complex tear of posterior horn of medial meniscus. 3. Joint effusion with distention of suprapatellar recess. 4. Generalized cartilage loss of the medial compartment, which is definitely worse from the prior st udy. POS: TPC
== END 2019-08-28 14:28 | disposition home or self-care (01) ==
LOC: TBSIIMAG 14:27
PROVIDERS: ATTEND Orthopaedic Surgery
DX: S83.282A Other tear of lateral meniscus, current injury, left knee, initial encounter (principal); S83.242A Other tear of medial meniscus, current injury, left knee, initial encounter; M25.462 Effusion, left knee

== ENCOUNTER 2019-10-24 20:24 | Emergency (ER) | payer MEDICARE, OTHER | END 2019-10-24 22:00 | disposition home or self-care (01) | LOC: ERS 20:24 | DX: R09.82 Postnasal drip (principal); E78.5 Hyperlipidemia, unspecified; I10 Essential (primary) hypertension; G43.909 Migraine, unspecified, not intractable, without status migrainosus; G47.30 Sleep apnea, unspecified; J45.909 Unspecified asthma, uncomplicated; F32.9 Major depressive disorder, single episode, unspecified; F43.10 Post-traumatic stress disorder, unspecified; F41.9 Anxiety disorder, unspecified | CPT/HCPCS: 99283 ==

== ENCOUNTER 2019-12-29 05:32 | Outpatient (CLI) | payer MEDICARE, MEDICAID ==
[2019-12-29 15:46] LABS: Mean Corpuscular HGB CONC 32.9 g/dL (32.0-36.0); Mean Corpuscular Hemoglobin 26.9 pg (27.0-31.0); Mean Corpuscular Volume 81.7 fL (78.0-98.0); Mean Platelet Volume 7.9 fL (7.4-10.4); Platelet Count 218 thou/uL (130-400); RBC Distribution Width 13.1 % (11.5-14.5); Red Blood Cell (RBC) Count 4.45 mill/uL (4.20-5.40); White Blood Cell (WBC) Count 6.1 thou/uL (4.8-10.8)
[2019-12-29 16:08] LABS: Anion Gap 13 mmol/L (10-20); BUN (Urea Nitrogen) 12 mg/dL (7.0-18.7); Calc. Creatinine Clearance 0 mL/min (70-130); Calcium 8.6 mg/dL (7.8-10.44); Carbon Dioxide 19 mmol/L (22-29); Chloride 112 mmol/L (98-107); Estimated GFR-MDRD 87; Glucose 80 mg/dL (70-105); Potassium 4.4 mmol/L (3.5-5.1); Sodium 140 mmol/L (136-145)
[2019-12-29 16:22] LABS: BHCG - Serum Negative (NEGATIVE); Pregs Control Background? CLEAR/WHITE (CLR/WHITE); Pregs Control Bar Appear? YES (CONTROL BAR)
== END 2019-12-29 05:33 | disposition home or self-care (01) ==
LOC: LABBT 05:32
PROVIDERS: ATTEND Student in an Organized Health Care Education/Training Program
DX: Z01.812 Encounter for preprocedural laboratory examination (principal); N83.202 Unspecified ovarian cyst, left side; R10.2 Pelvic and perineal pain; N80.9 Endometriosis, unspecified
CPT/HCPCS: 80048; 84703; 85027; 86850; 86900; 86901

== ENCOUNTER 2020-01-01 10:39 | Day surgery (SDC) | payer MEDICARE, MEDICAID ==
[2019-12-29 15:01] VITALS: BMI 62.1
[2020-01-01] MEDS ORDERED: Famotidine/PF 20 mg/2ml Vial ONE ×2 (11:18→11:29)
[2020-01-01] MEDS ORDERED: Scopolamine 1.5 mg/72 hour Patch ONE (11:19)
[2020-01-01] MEDS ORDERED: Glycopyrrolate 0.2 MG/ML 5 ML SYRINGE ONE ×2 (11:19→15:04)
[2020-01-01] MEDS ORDERED: Ondansetron PF 4 MG/2 ML Vial ONE ×2 (11:19→15:04)
[2020-01-01] MEDS ORDERED: Gabapentin 300 MG CAP ONE (11:29)
[2020-01-01] MEDS ORDERED: CeleCOXIB 100 MG CAP ONE (11:29)
[2020-01-01] MEDS ORDERED: Albuterol Sulfate 2.5 mg/3 ml Neb NEB SCH (11:30)
[2020-01-01] MEDS ORDERED: Fentanyl 100 MCG/2 ML VIAL ONE ×3 (12:48→16:31)
[2020-01-01] MEDS ORDERED: Bupivacaine PF 0.5% 30 ML VIAL ONE (12:48)
[2020-01-01] MEDS ORDERED: Lidocaine 1% w/Epinephrine 1:100K 20 ML VIAL ONE (12:48)
[2020-01-01] MEDS ORDERED: Methylene Blue 50 MG/10 ML AMPUL ONE (12:48)
[2020-01-01] MEDS ORDERED: HYDROmorphone 0.5 MG/0.5 ML SYRINGE ONE (12:49)
[2020-01-01] MEDS ORDERED: Ketamine 50 MG/ML (10ML VIAL) ONE (12:49)
[2020-01-01] MEDS ORDERED: SUGAMMADEX SODIUM 500 MG/5 ML VIAL ONE (12:57)
[2020-01-01] MEDS ORDERED: Ondansetron HCl/PF 4 MG/2 ML Vial IVP PRN (14:25)
[2020-01-01] MEDS ORDERED: HYDROmorphone 2 MG/ML VIAL SLOW IVP PRN (14:25)
[2020-01-01] MEDS ORDERED: Thrombin 5000 UNITS/5 ML VIAL ONE (14:55)
[2020-01-01] MEDS ORDERED: Succinylcholine Chloride 20 MG/ML 10 ml SYRINGE FS ONE (15:04)
[2020-01-01] MEDS ORDERED: Rocuronium Bromide 10 MG/ML (10ML VIAL) ONE (15:04)
[2020-01-01] MEDS ORDERED: Dexamethasone 20 MG/5 ML VIAL ONE (15:04)
[2020-01-01] MEDS ORDERED: PROPOFOL 200 MG/20 ML VIAL ONE (15:04)
--- NOTE | 2020-01-02 10:30 | OP ---
DATE OF PROCEDURE: 01/01/2020 PREOPERATIVE DIAGNOSES: 1. Left lower quadrant pain. 2. Endometriosis, suspected. 3. Left ovarian cyst. POSTOPERATIVE DIAGNOSES: 1. Left lower quadrant pain. 2. Endometriosis, suspected. 3. Left ovarian cyst. PROCEDURES PERFORMED: 1. Diagnostic laparoscopy. 2. Left salpingo-oophorectomy. 3. Chromotubation. 4. Peritoneal biopsy. 5. Lysis of adhesions. ANESTHESIA: General endotracheal. SPD TECH SURGEON: Jordana King PA-C. ESTIMATED BLOOD LOSS: 20 mL. IVF: 1200 mL of crystalloid. URINE OUTPUT: 200 mL of clear urine. COMPLICATIONS: None. DRAINS: None. PATHOLOGY: 1. Left pelvic peritoneal biopsy. 2. Left ovary and fallopian tube. FINDINGS: An enlarged left ovary, approximately 6 cm, smooth, exterior appearance, containing thick mucinous yellow substance. The left fallopian tube was normal. The right fallopian tube and ovary were also within normal limits. The right ovary had a corpus luteum cyst, that was small. There was a patent right fallopian tube noted on chromotubation. There was also an omental adhesion to the anterior abdominal wall and uterus, that was taken down. The uterus was normal appearing. There were several clear vesicular lesions on the left pelvic sidewall just lateral to the uterosacral ligament, that were biopsied. DESCRIPTION OF PROCEDURE: The patient was taken to the operating room, where general anesthesia was obtained without difficulty. The patient was prepped and draped in a sterile fashion in dorsal lithotomy position. A Camara catheter was placed in the bladder. A speculum was placed in the vagina. The anterior lip of the cervix was grasped with a single-tooth tenaculum. The uterus then sounded to approximately 7 cm. The diagnostic ARIEL tip was placed into the uterus. The balloon was inflated. The speculum and tenaculum were removed. Legs were placed in low lithotomy. Attention was turned to the abdomen. The umbilicus was infiltrated with a mixture of 0.5% Marcaine plain and 1% lidocaine with epi and a 12-mm skin incision was made. The Veress needle was passed to the abdomen, noting an opening pressure of 6 mmHg. Pneumoperitoneum was obtained without difficulty. The Veress needle was removed. The 12-mm trocar was advanced into the abdomen and confirmed placement with the camera. Trendelenburg was obtained. The above findings were noted. Right and left lower quadrant 5-mm ports were placed under direct visualization after infiltrating with anesthetic solution mixture. Photodocumentation was performed. The omental adhesion to the anterior abdominal wall was taken down with the use of the LigaSure, and hemostasis was noted. The left fallopian tube was then grasped and elevated and the ureter was noted medially across in the pelvic brim. The IP ligament was clamped across with the LigaSure, and cauterized and transected, and the medial utero-ovarian on the left was also cauterized and transected with the LigaSure and the 2 incisions were met in the middle sequentially with the LigaSure using for incision and hemostasis. The ovary was then placed into the anterior cul-de-sac. The thorough evaluation of the pelvis was performed secondary to the patient's pelvic pain. The vesicular lesion was noted on the left pelvic sidewall and this was grasped with a blunt grasper, and cold scissors were used to incise the peritoneum. The cautery was then used through the scissors to achieve hemostasis of this area. This was sent for final pathology. There also was minimal oozing from the medial portion of the uterus where the ovary was removed. The LigaSure achieved hemostasis in this area. At this point, a 12-mm bag was passed into the abdomen and the ovary was placed into the bag. The ovary was brought up through the umbilical incision, and once the bag had been delivered through, the port was then removed and the ovary was removed in pieces and sent for final pathology, that is when the mucinous substance was noted. Once the specimen had been removed from the abdomen, the camera was reinserted. Low pressure check and irrigation were performed, noting excellent hemostasis. The appendix was also visualized and noted to be within normal limits. All instruments were removed out of the abdomen and pneumoperitoneum was released. The fascia of the umbilical port was closed with a 0 Vicryl in [id number] fashion. The skin was closed with 4-0 Monocryl in subcuticular fashion. Dermabond was applied. The manipulator was removed out of the uterus and a Camara catheter was discontinued prior to leaving the OR. The cervix was within normal limits and no active bleeding. The patient tolerated the procedure well. Sponge, lap, and needle counts were correct x2. The patient was taken to recovery room in stable condition. The patient did not receive any antibiotics prior to the procedure. Job ID: [id number]
== END 2020-01-01 18:45 | disposition home or self-care (01) ==
LOC: SDC 10:39
PROVIDERS: ATTEND Student in an Organized Health Care Education/Training Program
PROC: 0W9 Anatomical Regions, General, Drainage (ICD-10-PCS; principal; 2020-01-01)
PROC: 0UT14ZZ Resection of Left Ovary, Percutaneous Endoscopic Approach (ICD-10-PCS; 2020-01-01)
PROC: 0UT64ZZ Resection of Left Fallopian Tube, Percutaneous Endoscopic Approach (ICD-10-PCS; 2020-01-01)
DX: N83.12 Corpus luteum cyst of left ovary (principal); N80.1 Endometriosis of ovary; N73.6 Female pelvic peritoneal adhesions (postinfective); K21.9 Gastro-esophageal reflux disease without esophagitis; F41.9 Anxiety disorder, unspecified; F32.9 Major depressive disorder, single episode, unspecified; F43.10 Post-traumatic stress disorder, unspecified; G47.30 Sleep apnea, unspecified; D64.9 Anemia, unspecified; E66.01 Morbid (severe) obesity due to excess calories; Z68.44 Body mass index [BMI] 60.0-69.9, adult; Z79.84 Long term (current) use of oral hypoglycemic drugs; Z79.899 Other long term (current) drug therapy; Z88.1 Allergy status to other antibiotic agents; Z88.2 Allergy status to sulfonamides; Z88.8 Allergy status to other drugs, medicaments and biological substances; Z91.410 Personal history of adult physical and sexual abuse; Z99.89 Dependence on other enabling machines and devices
CPT/HCPCS: 58661; 88305; 88307; 94640; Q9968; J1100; J1170; J2405; J2704; J3010; J7620; S0020; S0028

== ENCOUNTER 2021-01-20 10:31 | Outpatient (CLI) | payer MEDICARE, MEDICAID ==
[2021-01-21 01:54] LABS: SARS-CoV-2 PCR by NAA Not Detected (NotDetected)
== END 2021-01-20 10:32 | disposition home or self-care (01) ==
LOC: LABBT 10:31
PROVIDERS: ATTEND Internal Medicine Gastroenterology
DX: Z01.812 Encounter for preprocedural laboratory examination (principal); M79.10 Myalgia, unspecified site; Z20.822 Contact with and (suspected) exposure to COVID-19
CPT/HCPCS: U0003; U0005; 87635

== ENCOUNTER 2021-01-23 12:10 | Day surgery (SDC) | payer MEDICARE, MEDICAID ==
[2021-01-22 12:38] VITALS: BMI 66.0
[~2021-01-23 12:10] MED LIST: Albuterol Sulfate HFA (OR ONLY) ONE; Dexamethasone 20 MG/5 ML VIAL ONE; Glycopyrrolate 0.2 MG/ML 5 ML SYRINGE ONE; Lidocaine 1% PF 5 ML VIAL ONE; Ondansetron PF 4 MG/2 ML Vial ONE; PROPOFOL 200 MG/20 ML VIAL ONE; Rocuronium Bromide 10 MG/ML (10ML VIAL) ONE; Succinylcholine 200 MG/10 ml SYRINGE FS ONE
[2021-01-23] MEDS ORDERED: Fleet Enema 133 ML BOT FS SCH (12:45)
[2021-01-23] MEDS ORDERED: Midazolam HCl 2 mg/2 ml Vial ONE (13:59)
[2021-01-23] MEDS ORDERED: Promethazine HCl 25 MG/ML VIAL SLOW IVP PRN (15:23)
[2021-01-23] MEDS ORDERED: Promethazine HCl 25 MG/ML VIAL IM PRN (15:23)
[2021-01-23] MEDS ORDERED: Ondansetron HCl/PF 4 MG/2 ML Vial IVP PRN ×2 (15:23→15:28)
--- NOTE | 2021-01-23 18:22 | OP ---
DATE OF PROCEDURE: 01/23/2021 PROCEDURE PERFORMED: Colonoscopy with snare polypectomy. PREPROCEDURE DIAGNOSES: 1. Chronic constipation. 2. Hematochezia suggestive of rectal outlet bleeding. POSTPROCEDURE DIAGNOSES: 1. Exam to distal terminal ileum; good bowel preparation. 2. Diminutive polyp in the cecum, 3 mm in diameter, removed by cold snare technique. 3. No obvious colitis or diverticulosis. 4. Hypertrophied anal papilla and small internal hemorrhoid. 5. Otherwise normal colonoscopy. DESCRIPTION OF PROCEDURE: Written informed consent was obtained. Upon completion of the EGD, the patient was repositioned for the colonoscopy. General anesthesia was provided by Dr. Collazo and associates. A digital rectal exam revealed no abnormalities. A Pentax video colonoscope was inserted through the anal canal and advanced under direct visualization to the cecum. Position in the cecum was verified by identification of the appendiceal orifice and ileocecal valve, which was subsequently intubated. The quality of the bowel preparation was good. The distal terminal ileum appeared grossly normal. There was no evidence of ileitis or ulcers. In the cecum, near the appendiceal orifice, a 3 mm sessile polyp was identified and removed by cold snare technique. The tissue was retrieved for pathology. Each colon segment was carefully examined as the colonoscope was slowly withdrawn from the cecum. Haustral folds appeared somewhat flattened, but the color of the mucosa appeared normal. No diverticular orifices or vascular ectasias were seen. There was no diverticulosis. In the rectum, retroflexed view demonstrated a small internal hemorrhoid and hypertrophied anal papilla. The colon was decompressed as the colonoscope was completely removed from the patient. She was extubated and transferred to the day stay surgery area for postprocedure monitoring. There were no immediate complications. RECOMMENDATIONS: 1. Await pathology results. 2. Have the patient call me in one week for pathology results. 3. Pending polyp results, we will recommend repeating a colonoscopy in 5 to 10 years for surveillance. 4. For the constipation, continue MiraLAX 17 g in water daily and 2 to 4 fiber gummies daily. 5. May also consider addition of Motegrity to help with constipation. 6. Follow up in the GI Clinic in 3 to 4 weeks. Job ID: [id number]
--- NOTE | 2021-01-23 23:09 | OP ---
DATE OF PROCEDURE: 01/23/2021 PROCEDURE PERFORMED: Esophagogastroduodenoscopy with biopsy. PREPROCEDURE DIAGNOSES: 1. Persistent nausea, vomiting. 2. History of sleeve gastrectomy in July 2020. 3. History of reflux. POSTPROCEDURE DIAGNOSES: 1. Exam to second portion of duodenum. 2. Grossly normal appearing esophagus, biopsied at 36 cm for histology. 3. Surgical changes in the proximal stomach consistent with previous sleeve gastrectomy, intact. 4. No gastric or duodenal ulcers. 5. No evidence of gastric outlet obstruction. 6. Normal duodenum. DESCRIPTION OF PROCEDURE: Written informed consent was obtained. The patient was brought to the endoscopy suite. General anesthesia was provided by and associates. The patient was placed in the left lateral decubitus position. A bite block was inserted into the mouth. A Pentax video diagnostic gastroscope was introduced into the oral cavity and the esophagus was carefully intubated. The gastroscope was advanced under direct visualization to the second portion of the duodenum. Endoscopic findings revealed grossly normal appearing esophagus with overall normal motility. There was no evidence of erosive esophagitis or ulcers. Biopsies were obtained in the lower esophagus near the EG junction at 36 cm for histology. The stomach was entered and carefully examined. This did not include a retroflexed view of the cardia due to her previous surgical history. Luminal changes consistent with previous sleeve gastrectomy were noted in the proximal stomach. The lumen did appear appropriately narrowed, but no ulcers, bleeding, or friability was observed. The distal half of the stomach appeared normal. There was no evidence of gastric outlet obstruction. The duodenum from the bulb to the second portion was normal. The stomach was decompressed as the endoscope was completely removed from the patient. She was repositioned for the colonoscopy. RECOMMENDATIONS: 1. Await pathology results. 2. Continue Dexilant 60 mg daily. 3. Add famotidine 20-40 mg at bedtime. 4. Consider a trial of Motegrity to help with both her nausea, vomiting, and constipation. 5. Follow up in the office in about 3-4 weeks. Job ID: [id number]
== END 2021-01-23 16:20 | disposition home or self-care (01) ==
LOC: SDC 12:10
PROVIDERS: ATTEND Internal Medicine Gastroenterology
PROC: 0DB38ZX Excision of Lower Esophagus, Via Natural or Artificial Opening Endoscopic, Diagnostic (ICD-10-PCS; principal; 2021-01-23)
PROC: 0DBH8ZX Excision of Cecum, Via Natural or Artificial Opening Endoscopic, Diagnostic (ICD-10-PCS; 2021-01-23)
DX: K63.5 Polyp of colon (principal); K59.09 Other constipation; K92.1 Melena; K62.89 Other specified diseases of anus and rectum; K64.8 Other hemorrhoids; R11.2 Nausea with vomiting, unspecified; G47.33 Obstructive sleep apnea (adult) (pediatric); K21.9 Gastro-esophageal reflux disease without esophagitis; F41.9 Anxiety disorder, unspecified; F43.10 Post-traumatic stress disorder, unspecified; I10 Essential (primary) hypertension; E66.9 Obesity, unspecified; Z68.44 Body mass index [BMI] 60.0-69.9, adult; Z79.84 Long term (current) use of oral hypoglycemic drugs; Z79.899 Other long term (current) drug therapy; Z88.1 Allergy status to other antibiotic agents; Z88.2 Allergy status to sulfonamides; Z88.8 Allergy status to other drugs, medicaments and biological substances; Z98.84 Bariatric surgery status
CPT/HCPCS: 88305; J1100; J2250; J2405; J2704

== ENCOUNTER 2021-06-13 13:27 | Outpatient (CLI) | payer MEDICARE, MEDICAID | END 2021-06-13 13:28 | disposition home or self-care (01) | LOC: RAD 13:27 | PROVIDERS: ATTEND Surgery | DX: E66.01 Morbid (severe) obesity due to excess calories (principal); Z98.890 Other specified postprocedural states | CPT/HCPCS: 74220 ==

== ENCOUNTER 2021-06-13 18:54 | Emergency (ER) | payer MEDICARE, MEDICAID ==
[2021-06-13 19:28] LABS: Bilirubin Negative (Negative); Blood, Urine Negative (Negative); Clarity Clear (Clear); Glucose, Urine (Dipstick) Normal (Negative); Ketone, Urine Negative (Negative); Leukocyte Negative Leu/uL (Negative); Nitrite Negative (Negative); Protein, Urine (Dipstick) Negative (Neg-Trace); Specific Gravity, Urine 1.006 (1.002-1.036); Urobilinogen Normal mg/dL (Less than 2)
[2021-06-13 19:30] LABS: Pregnancy Test - Urine (BHCG) Negative (Negative); Pregu Control Background? CLEAR/WHITE (CLR/WHITE); Pregu Control Bar Appear? YES (CONTROL BAR); Specific Gravity 1.006 (1.002-1.036)
[2021-06-13 19:51] LABS: #Basophils 0.1 thou/uL (0.0-0.2); #Eosinphils 0.1 thou/uL (0.0-0.7); #Lymphocytes 1.8 thou/uL (1.20-3.40); #Monocytes 0.3 thou/uL (0.11-0.59); #Neutrophils 3.8 thou/uL (1.40-6.50); %Basophils 1.1 % (0.0-1.0); %Eosinophils 2.3 % (0.0-10.0); %Lymphocytes 28.7 % (21.0-51.0); %Neutrophils 62.9 % (42.0-75.0); Mean Corpuscular HGB CONC 32.5 g/dL (32.0-36.0); Mean Corpuscular Hemoglobin 26.6 pg (27.0-31.0); Mean Corpuscular Volume 81.8 fL (78.0-98.0); Mean Platelet Volume 7.2 fL (7.4-10.4); Platelet Count 231 thou/uL (130-400); RBC Distribution Width 12.2 % (11.5-14.5); Red Blood Cell (RBC) Count 4.14 mill/uL (4.20-5.40); White Blood Cell (WBC) Count 6.1 thou/uL (4.8-10.8)
[2021-06-13 20:14] LABS: ALT (SGPT) 8 U/L (8-55); AST (SGOT) 15 U/L (5-34); Albumin 3.8 g/dL (3.5-5.0); Alkaline Phosphatase 100 U/L (40-110); Anion Gap 14 mmol/L (10-20); BUN (Urea Nitrogen) 10 mg/dL (7.0-18.7); Bilirubin, Total 0.3 mg/dL (0.2-1.2); Calc. Creatinine Clearance 0 mL/min (70-130); Calcium 9.2 mg/dL (7.8-10.44); Carbon Dioxide 24 mmol/L (22-29); Chloride 105 mmol/L (98-107); Globulin 3.3 g/dL (2.4-3.5); Glucose 88 mg/dL (70-105); Lipase 9 U/L (8-78); Potassium 4.5 mmol/L (3.5-5.1); Protein, Total 7.1 g/dL (6.0-8.3); Sodium 138 mmol/L (136-145)
[2021-06-13] MEDS ORDERED: Ondansetron ODT 4 MG TAB ONE (21:37)
== END 2021-06-13 22:28 | disposition home or self-care (01) ==
LOC: ERS 18:54
DX: R11.2 Nausea with vomiting, unspecified (principal); R13.10 Dysphagia, unspecified; E78.5 Hyperlipidemia, unspecified; I10 Essential (primary) hypertension; E28.2 Polycystic ovarian syndrome; G47.30 Sleep apnea, unspecified; J45.909 Unspecified asthma, uncomplicated; Z79.84 Long term (current) use of oral hypoglycemic drugs; Z79.899 Other long term (current) drug therapy
CPT/HCPCS: 36415; 71045; 80053; 81003; 81025; 83690; 84484; 85025; 93005; Q0162

== ENCOUNTER 2021-07-11 11:32 | Outpatient (CLI) | payer MEDICARE, MEDICAID, OTHER ==
[2021-07-11 13:18] LABS: #Eosinphils 0.2 10x3/uL (0.0-0.5); #Monocytes 0.3 10x3/uL (0.0-1.1); #Neutrophils 4.1 10x3/uL (1.5-8.4); %Basophils 0.3 % (0.0-2.0); %Eosinophils 2.8 % (0.0-6.0); %Lymphocytes 28.5 % (18.0-47.0); %Monocytes 4.7 % (0.0-10.0); %Neutrophils 63.5 % (40.0-75.0); Hemoglobin 11.4 g/dL (12.0-15.5); Mean Corpuscular HGB CONC 30.7 g/dL (32.0-36.0); Mean Corpuscular Hemoglobin 25.1 pg (27.0-33.0); Mean Corpuscular Volume 81.5 fl (81.6-98.3); Platelet Count 251 10x3/uL (150-450); RBC Distribution Width 13.8 % (11.5-14.5); Red Blood Cell (RBC) Count 4.55 10x6/uL (3.90-5.03); White Blood Cell (WBC) Count 6.4 10x3/uL (3.5-10.5)
[2021-07-11 13:24] LABS: BHCG - Serum Negative (NEGATIVE); Pregs Control Background? CLEAR/WHITE (CLR/WHITE); Pregs Control Bar Appear? YES (CONTROL BAR)
[2021-07-11 13:28] LABS: ALT (SGPT) 36 U/L (8-55); AST (SGOT) 25 U/L (5-34); Albumin 3.8 g/dL (3.5-5.0); Alkaline Phosphatase 109 U/L (40-110); Anion Gap 12 mmol/L (10-20); BUN (Urea Nitrogen) 23 mg/dL (7.0-18.7); Bilirubin, Total 0.2 mg/dL (0.2-1.2); Calc. Creatinine Clearance 0 mL/min (70-130); Calcium 9.5 mg/dL (7.8-10.44); Carbon Dioxide 24 mmol/L (22-29); Chloride 106 mmol/L (98-107); Globulin 2.7 g/dL (2.4-3.5); Glucose 84 mg/dL (70-105); Potassium 3.7 mmol/L (3.5-5.1); Protein, Total 6.5 g/dL (6.0-8.3); Sodium 138 mmol/L (136-145)
[2021-07-11 16:41] LABS: Hemoglobin A1c 5.1 % (4.0-6.0)
[2021-07-12 13:56] LABS: SARS-CoV-2 PCR by NAA Not Detected (NotDetected)
== END 2021-07-11 11:33 | disposition home or self-care (01) ==
LOC: LABBT 11:32
PROVIDERS: ATTEND Internal Medicine Gastroenterology
DX: Z01.818 Encounter for other preprocedural examination (principal); K21.9 Gastro-esophageal reflux disease without esophagitis; E66.01 Morbid (severe) obesity due to excess calories; Z20.822 Contact with and (suspected) exposure to COVID-19
CPT/HCPCS: 71046; 80053; 83036; 84703; 85025; 93005; U0003; U0005; 93010

== ENCOUNTER 2021-10-03 11:49 | Outpatient (CLI) | payer MEDICARE, MEDICAID, OTHER ==
[2021-10-04 14:28] LABS: SARS-CoV-2 PCR by NAA Not Detected (NotDetected)
== END 2021-10-03 11:50 | disposition home or self-care (01) ==
LOC: LABBT 11:49
PROVIDERS: ATTEND Surgery
DX: Z01.812 Encounter for preprocedural laboratory examination (principal); K21.9 Gastro-esophageal reflux disease without esophagitis; E66.01 Morbid (severe) obesity due to excess calories; Z20.822 Contact with and (suspected) exposure to COVID-19
CPT/HCPCS: U0003; U0005

== ENCOUNTER 2021-10-03 12:00 | Inpatient (IN) | payer MEDICARE, MEDICAID ==
[2021-10-06 15:30] VITALS: BMI 66.0
[2021-10-08] MEDS ORDERED: Levofloxacin 500 mg/D5W 100 ml Premix Bag ONE (10:16)
[2021-10-08] MEDS ORDERED: Lidocaine 1% w/Epinephrine 1:100K 20 ML VIAL ONE (11:03)
[2021-10-08] MEDS ORDERED: Bupivacaine 0.25% HCL 30 ML VIAL ONE (11:03)
[2021-10-08] MEDS ORDERED: Fentanyl 250 MCG/5 ML VIAL ONE (11:41)
[2021-10-08] MEDS ORDERED: Propofol 1,000 MG/100 ML VIAL IV ONE (11:59)
[2021-10-08] MEDS ORDERED: Dexamethasone 20 MG/5 ML VIAL ONE (11:59)
[2021-10-08] MEDS ORDERED: Ondansetron PF 4 MG/2 ML Vial ONE (11:59)
[2021-10-08] MEDS ORDERED: Glycopyrrolate 0.2 MG/ML 5 ML SYRINGE ONE (11:59)
[2021-10-08] MEDS ORDERED: Rocuronium Bromide 10 MG/ML (10ML VIAL) ONE (11:59)
[2021-10-08] MEDS ORDERED: Lidocaine 1% PF 5 ML VIAL ONE (11:59)
[2021-10-08] MEDS ORDERED: Hydrocodone-Acetamin 15 ML UDCUP PO PRN (14:43)
[2021-10-08] MEDS ORDERED: diphenhydrAMINE 50 MG/ML VIAL IVP PRN ×2 (14:43→14:45)
[2021-10-08] MEDS ORDERED: hydrALAZINE 20 MG/ML VIAL SLOW IVP PRN (14:43)
[2021-10-08] MEDS ORDERED: Dextrose 5% in Water 1,000 ML IV PRN (14:43)
[2021-10-08] MEDS ORDERED: Ondansetron PF 4 MG/2 ML Vial IVP PRN ×2 (14:43→14:45)
[2021-10-08] MEDS ORDERED: Dextrose 50% Abboject 50 ML SYRINGE SLOW IVP PRN (14:43)
[2021-10-08] MEDS ORDERED: HYDROmorphone 2 MG/ML VIAL SLOW IVP PRN (14:45)
[2021-10-08] MEDS ORDERED: Zolpidem Tartrate 5 MG TAB PO PRN (14:45)
[2021-10-08] MEDS ORDERED: diphenhydrAMINE 50 MG/ML VIAL IM PRN (14:45)
[2021-10-08] MEDS ORDERED: Ondansetron HCl/PF 4 MG/2 ML Vial IVP PRN (14:45)
[2021-10-08] MEDS ORDERED: PCA Communication Order-Pharmacy FS SCH (14:45)
[2021-10-08] MEDS ORDERED: diphenhydrAMINE 25 MG CAP PO PRN (14:45)
[2021-10-08] MEDS ORDERED: PACU-Morphine 4MG/ML VIAL SLOW IVP PRN (14:45)
[2021-10-08] MEDS ORDERED: HYDROmorphone 10 mg/100 ml CADD IVPB PRN (14:45)
[2021-10-08] MEDS ORDERED: Naloxone HCl 0.4 mg/ml Vial IV PRN (14:45)
[2021-10-08] MEDS ORDERED: Fentanyl 100 MCG/2 ML VIAL ONE ×2 (14:51→15:10)
[2021-10-08] MEDS ORDERED: HYDROmorphone 2 MG/ML VIAL ONE ×2 (15:09→15:47)
[2021-10-08] MEDS ORDERED: Fentanyl CADD 100 ML IVPB SCH (16:00)
[2021-10-08] MEDS: Gabapentin 300 MG CAP PO SCH ×2 (17:34→22:21)
[2021-10-08] MEDS: D5 1/2 NS w/20 mEq KCL 1,000 ML IV SCH (17:42)
[2021-10-08] MEDS ORDERED: Topiramate 100 MG TAB PO SCH (21:00)
[2021-10-08] MEDS ORDERED: Lisinopril 5 MG TAB PO SCH (21:00)
[2021-10-08] MEDS ORDERED: Nortriptyline HCl 25 MG CAP PO SCH (21:00)
[2021-10-08] MEDS ORDERED: Prazosin HCl 1 MG CAP PO SCH (21:00)
[2021-10-09] MEDS: D5 1/2 NS w/20 mEq KCL 1,000 ML IV SCH ×2 (02:56→06:21)
[2021-10-09 05:57] LABS: #Lymphocytes 1.2 thou/uL (1.20-3.40); #Monocytes 0.5 thou/uL (0.11-0.59); #Neutrophils 5.3 thou/uL (1.40-6.50); %Basophils 0.2 % (0.0-1.0); %Eosinophils 0.6 % (0.0-10.0); %Lymphocytes 16.4 % (21.0-51.0); %Monocytes 7.2 % (0.0-10.0); %Neutrophils 75.6 % (42.0-75.0); Hemoglobin 11.7 g/dL (12.0-16.0); Mean Corpuscular HGB CONC 32.5 g/dL (32.0-36.0); Mean Corpuscular Hemoglobin 26.9 pg (27.0-31.0); Mean Corpuscular Volume 82.7 fL (78.0-98.0); Platelet Count 254 thou/uL (130-400); RBC Distribution Width 13.3 % (11.5-14.5); Red Blood Cell (RBC) Count 4.36 mill/uL (4.20-5.40)
[2021-10-09 06:17] LABS: Anion Gap 10 mmol/L (10-20); BUN (Urea Nitrogen) 7 mg/dL (7.0-18.7); Calc. Creatinine Clearance 285 mL/min (70-130); Calcium 9.2 mg/dL (7.8-10.44); Carbon Dioxide 23 mmol/L (22-29); Chloride 106 mmol/L (98-107); Glucose 104 mg/dL (70-105); Potassium 3.8 mmol/L (3.5-5.1); Sodium 135 mmol/L (136-145)
[2021-10-09] MEDS ORDERED: Enoxaparin Sodium 40 MG/0.4 ML SYRINGE SC SCH (09:00)
[2021-10-09] MEDS ORDERED: Pantoprazole 40 MG VIAL IVP SCH (09:00)
[2021-10-09] MEDS: Gabapentin 300 MG CAP PO SCH (09:04)
[2021-10-09 11:51] VITALS: BP 120/72; TEMP 97.9
== END 2021-10-09 12:09 | disposition home or self-care (01) | DRG 620 ==
LOC: SURG A 10-08 09:41 → SJJU 10-08 15:38
PROVIDERS: ADMIT Surgery; ATTEND Surgery
PROC: 0D164ZA Bypass Stomach to Jejunum, Percutaneous Endoscopic Approach (ICD-10-PCS; principal; 2021-10-08)
DX: E66.01 Morbid (severe) obesity due to excess calories (principal); K31.1 Adult hypertrophic pyloric stenosis; K21.9 Gastro-esophageal reflux disease without esophagitis; Z20.822 Contact with and (suspected) exposure to COVID-19; I10 Essential (primary) hypertension; G47.30 Sleep apnea, unspecified; G43.909 Migraine, unspecified, not intractable, without status migrainosus; D64.9 Anemia, unspecified; J30.2 Other seasonal allergic rhinitis; K76.0 Fatty (change of) liver, not elsewhere classified; M19.90 Unspecified osteoarthritis, unspecified site; M06.9 Rheumatoid arthritis, unspecified; F41.9 Anxiety disorder, unspecified; F32.9 Major depressive disorder, single episode, unspecified; F43.10 Post-traumatic stress disorder, unspecified; E28.2 Polycystic ovarian syndrome; Z99.89 Dependence on other enabling machines and devices; Z68.44 Body mass index [BMI] 60.0-69.9, adult; Z88.2 Allergy status to sulfonamides; Z88.1 Allergy status to other antibiotic agents; Z88.8 Allergy status to other drugs, medicaments and biological substances; Z79.51 Long term (current) use of inhaled steroids; Z79.899 Other long term (current) drug therapy
CPT/HCPCS: 36415; 80048; 85025; 94760; C9113; J1100; J1170; J1200; J1650; J1956; J2405; J2704; J3010; J3480; S0020

== ENCOUNTER 2021-10-22 13:48 | Day surgery (SDC) | payer MEDICARE, MEDICAID ==
[2021-10-22] MEDS ORDERED: Ondansetron PF 4 MG/2 ML Vial IVP PRN (14:05)
[2021-10-22] MEDS ORDERED: Sodium Chloride 0.9% 1,000 ML IV SCH (14:15)
[2021-10-22] MEDS ORDERED: Multivitamins, Adult 10 ML, Thiamine HCl 100 MG in Sodium Chloride 0.9% 1,000 ML IV SCH (14:15)
[2021-10-22 14:42] VITALS: BP 108/53; TEMP 98.1
== END 2021-10-22 16:23 | disposition home or self-care (01) ==
LOC: ONC/OP 13:48
PROVIDERS: ATTEND Surgery
DX: E86.0 Dehydration (principal); Z88.1 Allergy status to other antibiotic agents; Z88.2 Allergy status to sulfonamides; Z88.8 Allergy status to other drugs, medicaments and biological substances
CPT/HCPCS: 96361; 96365; 96366; J3411; J7050

== ENCOUNTER 2021-12-13 22:50 | Emergency (ER) | payer OTHER, MEDICAID ==
[2021-12-13 23:48] LABS: Bilirubin Negative (Negative); Blood, Urine Negative (Negative); Glucose, Urine (Dipstick) Negative (Negative); Ketone, Urine Negative (Negative); Leukocyte Negative (Negative); Nitrite Negative (Negative); Protein, Urine (Dipstick) Negative (Neg-Trace); Specific Gravity, Urine 1.015 (1.005-1.030); Urobilinogen 0.2 mg/dL (Less than 2); pH, Urine 5.5 (5.0-9.0)
[2021-12-14 00:03] LABS: Clarity Clear (Clear)
== END 2021-12-14 01:28 | disposition home or self-care (01) ==
LOC: ERS 22:50
DX: B37.3 Candidiasis of vulva and vagina (principal); I10 Essential (primary) hypertension; E78.5 Hyperlipidemia, unspecified; J45.909 Unspecified asthma, uncomplicated; G43.909 Migraine, unspecified, not intractable, without status migrainosus; G47.30 Sleep apnea, unspecified; Z79.899 Other long term (current) drug therapy
CPT/HCPCS: 81003; 99283

== ENCOUNTER 2022-01-23 21:01 | Emergency (ER) | payer OTHER ==
[2022-01-23 23:50] LABS: #Eosinphils 0.2 thou/uL (0.0-0.7); #Lymphocytes 2.1 thou/uL (1.20-3.40); #Monocytes 0.3 thou/uL (0.11-0.59); #Neutrophils 5.3 thou/uL (1.40-6.50); %Basophils 0.6 % (0.0-1.0); %Eosinophils 2.5 % (0.0-10.0); %Lymphocytes 25.9 % (21.0-51.0); %Monocytes 4.3 % (0.0-10.0); %Neutrophils 66.8 % (42.0-75.0); Hemoglobin 11.5 g/dL (12.0-16.0); Mean Corpuscular HGB CONC 32.3 g/dL (32.0-36.0); Mean Corpuscular Hemoglobin 27.7 pg (27.0-31.0); Mean Corpuscular Volume 85.9 fL (78.0-98.0); Mean Platelet Volume 7.1 fL (7.4-10.4); Platelet Count 245 thou/uL (130-400); RBC Distribution Width 12.5 % (11.5-14.5); Red Blood Cell (RBC) Count 4.13 mill/uL (4.20-5.40)
[2022-01-24 00:02] LABS: BHCG - Serum Negative (NEGATIVE); Pregs Control Background? CLEAR/WHITE (CLR/WHITE); Pregs Control Bar Appear? YES (CONTROL BAR)
[2022-01-24 00:37] LABS: ALT (SGPT) 12 U/L (8-55); AST (SGOT) 21 U/L (5-34); Albumin 3.8 g/dL (3.5-5.0); Alkaline Phosphatase 108 U/L (40-110); Anion Gap 14 mmol/L (10-20); BUN (Urea Nitrogen) 12 mg/dL (7.0-18.7); Bilirubin, Total 0.2 mg/dL (0.2-1.2); Calc. Creatinine Clearance 0 mL/min (70-130); Calcium 9.3 mg/dL (7.8-10.44); Carbon Dioxide 18 mmol/L (22-29); Chloride 110 mmol/L (98-107); Globulin 3.6 g/dL (2.4-3.5); Glucose 84 mg/dL (70-105); Magnesium 2.1 mg/dL (1.6-2.6); Potassium 4.5 mmol/L (3.5-5.1); Protein, Total 7.4 g/dL (6.0-8.3); Sodium 137 mmol/L (136-145)
[2022-01-24] MEDS ORDERED: Ketorolac Tromethamine 30 MG/ML VIAL ONE (01:39)
[2022-01-24] MEDS ORDERED: Acetaminophen 500 MG TAB ONE (01:39)
== END 2022-01-24 02:25 | disposition home or self-care (01) ==
LOC: ERS 21:01
DX: R55 Syncope and collapse (principal); R42 Dizziness and giddiness; E78.5 Hyperlipidemia, unspecified; I10 Essential (primary) hypertension; G47.30 Sleep apnea, unspecified; J45.909 Unspecified asthma, uncomplicated; G43.909 Migraine, unspecified, not intractable, without status migrainosus; Z79.899 Other long term (current) drug therapy
CPT/HCPCS: 71045; 80053; 83735; 84484; 84703; 85025; 93005; 96374; J1885

== ENCOUNTER 2022-02-06 08:01 | Outpatient (CLI) | payer MEDICARE, MEDICAID | END 2022-02-06 08:02 | disposition home or self-care (01) | LOC: CT 08:01 | PROVIDERS: ATTEND Family Medicine | DX: R55 Syncope and collapse (principal) | CPT/HCPCS: 70450 ==

== ENCOUNTER 2022-02-19 20:08 | Emergency (ER) | payer OTHER | END 2022-02-20 01:57 | disposition home or self-care (01) | LOC: ERS 20:08 | DX: R55 Syncope and collapse (principal); I10 Essential (primary) hypertension; G43.909 Migraine, unspecified, not intractable, without status migrainosus; G47.30 Sleep apnea, unspecified; J45.909 Unspecified asthma, uncomplicated | CPT/HCPCS: 36415; 71045; 80053; 84484; 84703; 85025; 93005; 96372; J1885 ==

== ENCOUNTER 2022-03-01 23:10 | Emergency (ER) | payer MEDICARE, OTHER ==
[2022-03-02] MEDS ORDERED: Ketorolac Tromethamine 30 MG/ML VIAL ONE (00:03)
== END 2022-03-02 00:56 | disposition home or self-care (01) ==
LOC: ERS 23:10
DX: R55 Syncope and collapse (principal); J45.909 Unspecified asthma, uncomplicated; I10 Essential (primary) hypertension; E78.5 Hyperlipidemia, unspecified; G47.30 Sleep apnea, unspecified
CPT/HCPCS: 36416; 93005; 96372; J1885

== ENCOUNTER 2022-04-04 19:40 | Emergency (ER) | payer MEDICARE, MEDICAID ==
[2022-04-04 20:27] LABS: #Eosinphils 0.3 thou/uL (0.0-0.7); #Lymphocytes 1.9 thou/uL (1.20-3.40); #Monocytes 0.3 thou/uL (0.11-0.59); #Neutrophils 4.6 thou/uL (1.40-6.50); %Basophils 0.6 % (0.0-1.0); %Eosinophils 4.2 % (0.0-10.0); %Lymphocytes 26.9 % (21.0-51.0); %Monocytes 4.5 % (0.0-10.0); %Neutrophils 63.9 % (42.0-75.0); Hemoglobin 12.3 g/dL (12.0-16.0); Mean Corpuscular HGB CONC 32.5 g/dL (32.0-36.0); Mean Corpuscular Hemoglobin 28.8 pg (27.0-31.0); Mean Corpuscular Volume 88.6 fL (78.0-98.0); Mean Platelet Volume 6.9 fL (7.4-10.4); Platelet Count 255 thou/uL (130-400); RBC Distribution Width 12.3 % (11.5-14.5); Red Blood Cell (RBC) Count 4.29 mill/uL (4.20-5.40); White Blood Cell (WBC) Count 7.2 thou/uL (4.8-10.8)
[2022-04-04 20:50] LABS: ALT (SGPT) 9 U/L (8-55); AST (SGOT) 9 U/L (5-34); Albumin 3.9 g/dL (3.5-5.0); Alkaline Phosphatase 129 U/L (40-110); Anion Gap 12 mmol/L (10-20); BUN (Urea Nitrogen) 12 mg/dL (7.0-18.7); Bilirubin, Total 0.2 mg/dL (0.2-1.2); Calc. Creatinine Clearance 0 mL/min (70-130); Calcium 8.8 mg/dL (7.8-10.44); Carbon Dioxide 24 mmol/L (22-29); Chloride 108 mmol/L (98-107); Globulin 3.1 g/dL (2.4-3.5); Glucose 81 mg/dL (70-105); Magnesium 2.1 mg/dL (1.6-2.6); Sodium 140 mmol/L (136-145)
[2022-04-04 20:53] LABS: BHCG - Serum Negative (NEGATIVE); Pregs Control Background? CLEAR/WHITE (CLR/WHITE); Pregs Control Bar Appear? YES (CONTROL BAR)
[2022-04-04 21:24] LABS: Thyroid Stimulating Hormone 1.8318 uIU/mL (0.35-4.94)
[2022-04-04 21:28] LABS: Bilirubin Negative (Negative); Blood, Urine Negative (Negative); Clarity Clear (Clear); Glucose, Urine (Dipstick) Normal (Negative); Ketone, Urine Negative (Negative); Leukocyte Negative Leu/uL (Negative); Nitrite Negative (Negative); Protein, Urine (Dipstick) Negative (Neg-Trace); Specific Gravity, Urine 1.018 (1.002-1.036); Urobilinogen Normal mg/dL (Less than 2)
[2022-04-04] MEDS ORDERED: Acetaminophen 500 MG TAB ONE (21:52)
== END 2022-04-04 22:13 | disposition home or self-care (01) ==
LOC: ERS 19:40
DX: R55 Syncope and collapse (principal); I10 Essential (primary) hypertension; E78.5 Hyperlipidemia, unspecified; J45.909 Unspecified asthma, uncomplicated; G47.30 Sleep apnea, unspecified
CPT/HCPCS: 36415; 71045; 80053; 81003; 83735; 84443; 84484; 84703; 85025; 93005; 94760

== ENCOUNTER 2022-04-12 17:21 | Emergency (ER) | payer MEDICARE, MEDICAID ==
[2022-04-12 17:57] LABS: #Basophils 0.1 thou/uL (0.0-0.2); #Eosinphils 0.2 thou/uL (0.0-0.7); #Lymphocytes 1.7 thou/uL (1.20-3.40); #Monocytes 0.3 thou/uL (0.11-0.59); #Neutrophils 3.6 thou/uL (1.40-6.50); %Basophils 0.9 % (0.0-1.0); %Eosinophils 3.6 % (0.0-10.0); %Lymphocytes 29.1 % (21.0-51.0); %Monocytes 4.5 % (0.0-10.0); %Neutrophils 61.9 % (42.0-75.0); Hemoglobin 12.5 g/dL (12.0-16.0); Mean Corpuscular HGB CONC 31.6 g/dL (32.0-36.0); Mean Corpuscular Hemoglobin 28.4 pg (27.0-31.0); Mean Platelet Volume 6.8 fL (7.4-10.4); Platelet Count 227 thou/uL (130-400); RBC Distribution Width 12.5 % (11.5-14.5); White Blood Cell (WBC) Count 5.8 thou/uL (4.8-10.8)
[2022-04-12 18:20] LABS: BHCG - Serum Negative (NEGATIVE); Pregs Control Background? CLEAR/WHITE (CLR/WHITE); Pregs Control Bar Appear? YES (CONTROL BAR)
[2022-04-12 18:29] LABS: ALT (SGPT) 11 U/L (8-55); AST (SGOT) 15 U/L (5-34); Albumin 3.7 g/dL (3.5-5.0); Alkaline Phosphatase 112 U/L (40-110); Anion Gap 11 mmol/L (10-20); BUN (Urea Nitrogen) 15 mg/dL (7.0-18.7); Bilirubin, Total Less than 0.2 mg/dL (0.2-1.2); CK (CPK) 38 U/L (29-168); Calc. Creatinine Clearance 0 mL/min (70-130); Calcium 8.8 mg/dL (7.8-10.44); Carbon Dioxide 24 mmol/L (22-29); Chloride 108 mmol/L (98-107); Globulin 3.5 g/dL (2.4-3.5); Glucose 84 mg/dL (70-105); Lipase 20 U/L (8-78); Potassium 4.9 mmol/L (3.5-5.1); Protein, Total 7.2 g/dL (6.0-8.3); Sodium 138 mmol/L (136-145)
[2022-04-12] MEDS ORDERED: Ketorolac Tromethamine 30 MG/ML VIAL ONE (20:27)
[2022-04-12] MEDS ORDERED: Metoclopramide HCl 10 MG/2 ML VIAL ONE (20:27)
== END 2022-04-12 21:42 | disposition home or self-care (01) ==
LOC: ERS 17:21
DX: R55 Syncope and collapse (principal); R51.9 Headache, unspecified; E78.5 Hyperlipidemia, unspecified; I10 Essential (primary) hypertension; K21.9 Gastro-esophageal reflux disease without esophagitis
CPT/HCPCS: 71045; 80053; 82550; 83690; 84484; 84703; 85025; 85379; 93005; 96374; 96375; J1885; J2765

== ENCOUNTER 2022-04-15 12:33 | Outpatient (CLI) | payer MEDICARE, MEDICAID | END 2022-04-15 12:34 | disposition home or self-care (01) | LOC: EEG 12:33 | PROVIDERS: ATTEND Psychiatry & Neurology Neurology | DX: G43.109 Migraine with aura, not intractable, without status migrainosus (principal) | CPT/HCPCS: 95816; 95957 ==

== ENCOUNTER 2022-04-26 21:13 | Emergency (ER) | payer OTHER | END 2022-04-26 23:05 | disposition home or self-care (01) | LOC: ERS 21:13 | DX: R55 Syncope and collapse (principal); E78.5 Hyperlipidemia, unspecified; I10 Essential (primary) hypertension | CPT/HCPCS: 93005 ==

== ENCOUNTER 2022-09-07 18:59 | Emergency (ER) | payer OTHER ==
[2022-09-07 19:25] LABS: #Eosinphils 0.2 thou/uL (0.0-0.7); #Lymphocytes 1.6 thou/uL (1.20-3.40); #Monocytes 0.2 thou/uL (0.11-0.59); #Neutrophils 2.9 thou/uL (1.40-6.50); %Basophils 0.8 % (0.0-1.0); %Eosinophils 3.3 % (0.0-10.0); %Lymphocytes 32.3 % (21.0-51.0); %Monocytes 4.2 % (0.0-10.0); %Neutrophils 59.4 % (42.0-75.0); Hemoglobin 12.9 g/dL (12.0-16.0); Mean Corpuscular HGB CONC 31.9 g/dL (32.0-36.0); Mean Corpuscular Hemoglobin 29.4 pg (27.0-31.0); Mean Corpuscular Volume 92.2 fL (78.0-98.0); Mean Platelet Volume 7.2 fL (7.4-10.4); Platelet Count 216 thou/uL (130-400); Red Blood Cell (RBC) Count 4.39 mill/uL (4.20-5.40); White Blood Cell (WBC) Count 4.8 thou/uL (4.8-10.8)
[2022-09-07 19:44] LABS: BHCG - Serum Negative (NEGATIVE); Pregs Control Background? CLEAR/WHITE (CLR/WHITE); Pregs Control Bar Appear? YES (CONTROL BAR)
[2022-09-07 19:46] LABS: ALT (SGPT) 10 U/L (8-55); AST (SGOT) 9 U/L (5-34); Albumin 3.9 g/dL (3.5-5.0); Alkaline Phosphatase 104 U/L (40-110); Anion Gap 11 mmol/L (10-20); BUN (Urea Nitrogen) 14 mg/dL (7.0-18.7); Bilirubin, Total 0.3 mg/dL (0.2-1.2); Calc. Creatinine Clearance 0 mL/min (70-130); Calcium 8.9 mg/dL (7.8-10.44); Carbon Dioxide 22 mmol/L (22-29); Chloride 111 mmol/L (98-107); Estimated GFR 109; Glucose 81 mg/dL (70-105); Protein, Total 6.9 g/dL (6.0-8.3); Sodium 140 mmol/L (136-145)
[2022-09-07] MEDS ORDERED: Acetaminophen 500 MG TAB ONE (21:07)
[2022-09-07] MEDS ORDERED: Ketorolac Tromethamine 30 MG/ML VIAL ONE (21:07)
[2022-09-07 23:43] LABS: Bilirubin Negative (Negative); Blood, Urine Negative (Negative); Clarity Clear (Clear); Glucose, Urine (Dipstick) Normal (Negative); Ketone, Urine Negative (Negative); Leukocyte Negative Leu/uL (Negative); Nitrite Negative (Negative); Protein, Urine (Dipstick) Negative (Neg-Trace); Specific Gravity, Urine 1.011 (1.002-1.036); Urobilinogen Normal mg/dL (Less than 2); pH, Urine 6.5 (5.0-9.0)
== END 2022-09-07 21:55 | disposition home or self-care (01) ==
LOC: ERS 18:59
DX: R55 Syncope and collapse (principal); E78.5 Hyperlipidemia, unspecified; I10 Essential (primary) hypertension; K21.9 Gastro-esophageal reflux disease without esophagitis; Z79.899 Other long term (current) drug therapy
CPT/HCPCS: 36415; 70450; 71045; 80053; 81003; 84484; 84703; 85025; 93005; 96372; J1885

== ENCOUNTER 2022-12-03 19:33 | Emergency (ER) | payer OTHER ==
[2022-12-03 21:19] LABS: #Eosinphils 0.2 thou/uL (0.0-0.7); #Lymphocytes 2.3 thou/uL (1.20-3.40); #Monocytes 0.3 thou/uL (0.11-0.59); #Neutrophils 3.6 thou/uL (1.40-6.50); %Basophils 0.4 % (0.0-1.0); %Monocytes 4.2 % (0.0-10.0); %Neutrophils 56.4 % (42.0-75.0); Hemoglobin 13.3 g/dL (12.0-16.0); Mean Corpuscular HGB CONC 32.3 g/dL (32.0-36.0); Mean Corpuscular Hemoglobin 29.6 pg (27.0-31.0); Mean Corpuscular Volume 91.8 fl (78.0-98.0); Mean Platelet Volume 7.2 fL (7.4-10.4); Platelet Count 235 10x3/uL (130-400); White Blood Cell (WBC) Count 6.4 10x3/uL (4.8-10.8)
[2022-12-03 21:41] LABS: ALT (SGPT) 8 U/L (8-55); AST (SGOT) 9 U/L (5-34); Albumin 4.2 g/dL (3.5-5.0); Alkaline Phosphatase 82 U/L (40-110); Anion Gap 11 mmol/L (10-20); BUN (Urea Nitrogen) 14 mg/dL (7.0-18.7); Bilirubin, Total 0.2 mg/dL (0.2-1.2); Calc. Creatinine Clearance 0 mL/min (70-130); Calcium 9.1 mg/dL (7.8-10.44); Carbon Dioxide 21 mmol/L (22-29); Chloride 113 mmol/L (98-107); Estimated GFR 108; Glucose 88 mg/dL (70-105); Lipase 19 U/L (8-78); Potassium 4.3 mmol/L (3.5-5.1); Protein, Total 7.2 g/dL (6.0-8.3); Sodium 141 mmol/L (136-145)
[2022-12-03] MEDS ORDERED: Dicyclomine 20 MG TAB ONE (22:24)
[2022-12-03] MEDS ORDERED: Acetaminophen 500 MG TAB ONE (22:24)
[2022-12-03 22:26] LABS: Bilirubin Negative (Negative); Blood, Urine Negative (Negative); Clarity Clear (Clear); Glucose, Urine (Dipstick) Normal (Negative); Ketone, Urine Negative (Negative); Leukocyte Negative Leu/uL (Negative); Nitrite Negative (Negative); Protein, Urine (Dipstick) Negative (Neg-Trace); Specific Gravity, Urine 1.023 (1.002-1.036); pH, Urine 6.5 (5.0-9.0)
[2022-12-03 22:48] LABS: Pregnancy Test - Urine (BHCG) Negative (Negative); Pregu Control Background? CLEAR/WHITE (CLR/WHITE); Pregu Control Bar Appear? YES (CONTROL BAR); Specific Gravity 1.023 (1.002-1.036)
== END 2022-12-04 00:40 | disposition home or self-care (01) ==
LOC: ERS 19:33
DX: M79.602 Pain in left arm (principal); R10.9 Unspecified abdominal pain; I10 Essential (primary) hypertension; E78.5 Hyperlipidemia, unspecified
CPT/HCPCS: 36415; 71045; 76856; 80053; 81003; 81025; 83690; 85025; 93005

== ENCOUNTER 2023-02-19 15:23 | Emergency (ER) | payer OTHER, MEDICARE ==
[2023-02-19 15:59] LABS: #Eosinphils 0.2 thou/uL (0.0-0.7); #Lymphocytes 2.3 thou/uL (1.20-3.40); #Monocytes 0.3 thou/uL (0.11-0.59); %Basophils 0.6 % (0.0-1.0); %Eosinophils 3.9 % (0.0-10.0); %Lymphocytes 38.8 % (21.0-51.0); %Monocytes 5.2 % (0.0-10.0); %Neutrophils 51.4 % (42.0-75.0); Hemoglobin 12.8 g/dL (12.0-16.0); Mean Corpuscular HGB CONC 33.7 g/dL (32.0-36.0); Mean Corpuscular Hemoglobin 30.3 pg (27.0-31.0); Mean Corpuscular Volume 89.9 fl (78.0-98.0); Platelet Count 228 10x3/uL (130-400); RBC Distribution Width 11.4 % (11.5-14.5); Red Blood Cell (RBC) Count 4.22 mill/uL (4.20-5.40); White Blood Cell (WBC) Count 5.8 10x3/uL (4.8-10.8)
[2023-02-19 16:27] LABS: ALT (SGPT) 17 U/L (8-55); AST (SGOT) 15 U/L (5-34); Alkaline Phosphatase 81 U/L (40-110); Anion Gap 11 mmol/L (10-20); BUN (Urea Nitrogen) 15 mg/dL (7.0-18.7); Bilirubin, Total 0.3 mg/dL (0.2-1.2); Calc. Creatinine Clearance 0 mL/min (70-130); Calcium 8.9 mg/dL (7.8-10.44); Carbon Dioxide 20 mmol/L (22-29); Chloride 112 mmol/L (98-107); Estimated GFR 103; Globulin 2.8 g/dL (2.4-3.5); Glucose 62 mg/dL (70-105); Potassium 3.5 mmol/L (3.5-5.1); Protein, Total 6.8 g/dL (6.0-8.3); Sodium 139 mmol/L (136-145)
== END 2023-02-19 17:31 | disposition home or self-care (01) ==
LOC: ERS 15:23
DX: S06.9XAA Unspecified intracranial injury with loss of consciousness status unknown, initial encounter (principal); R55 Syncope and collapse; I10 Essential (primary) hypertension; E78.5 Hyperlipidemia, unspecified; X58.XXXA Exposure to other specified factors, initial encounter
CPT/HCPCS: 70450; 71045; 80053; 85025; 93005; 94760

== ENCOUNTER 2023-03-02 10:38 | Outpatient (CLI) | payer OTHER, MEDICARE | END 2023-03-02 10:39 | disposition home or self-care (01) | LOC: RAD 10:38 | PROVIDERS: ATTEND Family Medicine | DX: M54.50 Low back pain, unspecified (principal) | CPT/HCPCS: 36415; 72220; 80048; 80061; 83036; 84443; 85025 ==

== ENCOUNTER 2023-05-09 01:08 | Emergency (ER) | payer OTHER ==
[2023-05-09 02:20] LABS: #Eosinphils 0.2 thou/uL (0.0-0.7); #Monocytes 0.4 thou/uL (0.11-0.59); #Neutrophils 3.3 thou/uL (1.40-6.50); %Basophils 0.7 % (0.0-1.0); %Eosinophils 3.3 % (0.0-10.0); %Lymphocytes 36.8 % (21.0-51.0); %Monocytes 5.7 % (0.0-10.0); %Neutrophils 53.2 % (42.0-75.0); Hemoglobin 12.1 g/dL (12.0-16.0); Mean Corpuscular HGB CONC 33.2 g/dL (32.0-36.0); Mean Corpuscular Hemoglobin 28.9 pg (27.0-31.0); Mean Corpuscular Volume 87.1 fl (78.0-98.0); Mean Platelet Volume 9.4 fL (7.4-10.4); Platelet Count 246 10x3/uL (130-400); RBC Distribution Width 11.6 % (11.5-14.5); Red Blood Cell (RBC) Count 4.19 mill/uL (4.20-5.40); White Blood Cell (WBC) Count 6.1 10x3/uL (4.8-10.8)
[2023-05-09 02:41] LABS: BHCG - Serum Negative (NEGATIVE); Pregs Control Background? CLEAR/WHITE (CLR/WHITE); Pregs Control Bar Appear? YES (CONTROL BAR)
[2023-05-09 02:43] LABS: ALT (SGPT) 13 U/L (8-55); AST (SGOT) 11 U/L (5-34); Albumin 3.8 g/dL (3.5-5.0); Alkaline Phosphatase 104 U/L (40-110); Anion Gap 10 mmol/L (10-20); BUN (Urea Nitrogen) 14 mg/dL (7.0-18.7); Bilirubin, Total 0.2 mg/dL (0.2-1.2); Calc. Creatinine Clearance 0 mL/min (70-130); Calcium 8.8 mg/dL (7.8-10.44); Carbon Dioxide 23 mmol/L (22-29); Chloride 110 mmol/L (98-107); Estimated GFR 101; Globulin 2.9 g/dL (2.4-3.5); Glucose 87 mg/dL (70-105); Lipase 13 U/L (8-78); Potassium 4.1 mmol/L (3.5-5.1); Protein, Total 6.7 g/dL (6.0-8.3); Sodium 139 mmol/L (136-145)
[2023-05-09 03:14] LABS: Bacteria/HPF None Seen HPF (None Seen); Bilirubin Negative (Negative); Blood, Urine Negative (Negative); CAUTI Indications for Culture Pelvic or flank pain; Clarity Turbid (Clear); Glucose, Urine (Dipstick) Normal (Negative); Ketone, Urine Negative (Negative); Leukocyte Negative Leu/uL (Negative); Nitrite Negative (Negative); Protein, Urine (Dipstick) 10 mg/dL (Neg-Trace); RBC/HPF 0-3 HPF (0-3); Specific Gravity, Urine 1.021 (1.002-1.036); WBC/HPF 0-3 HPF (0-3); pH, Urine 7.5 (5.0-9.0)
[2023-05-09 03:16] LABS: Urine Culture Reflex No No
[2023-05-09] MEDS ORDERED: Ketorolac Tromethamine 30 MG/ML VIAL ONE (04:25)
[2023-05-09] MEDS ORDERED: fentaNYL 50 mcg/mL 1 mL Vial ONE (04:25)
== END 2023-05-09 04:21 | disposition home or self-care (01) ==
LOC: ERS 01:08
DX: R10.2 Pelvic and perineal pain (principal); E78.5 Hyperlipidemia, unspecified; I10 Essential (primary) hypertension
CPT/HCPCS: 76830; 76856; 80053; 81001; 83690; 84703; 85025; J3010; 36415; 96372; J1885

== ENCOUNTER 2023-07-18 13:41 | Emergency (ER) | payer OTHER ==
[2023-07-18 14:05] LABS: #Eosinphils 0.2 thou/uL (0.0-0.7); #Monocytes 0.3 thou/uL (0.11-0.59); #Neutrophils 3.9 thou/uL (1.40-6.50); %Basophils 0.5 % (0.0-1.0); %Eosinophils 2.6 % (0.0-10.0); %Lymphocytes 28.6 % (21.0-51.0); %Monocytes 5.1 % (0.0-10.0); %Neutrophils 62.9 % (42.0-75.0); Hematocrit 36.7 % (36.0-47.0); Hemoglobin 11.9 g/dL (12.0-16.0); Mean Corpuscular HGB CONC 32.4 g/dL (32.0-36.0); Mean Corpuscular Hemoglobin 28.3 pg (27.0-31.0); Mean Corpuscular Volume 87.4 fl (78.0-98.0); Mean Platelet Volume 9.4 fL (7.4-10.4); Platelet Count 205 10x3/uL (130-400); RBC Distribution Width 11.8 % (11.5-14.5); White Blood Cell (WBC) Count 6.3 10x3/uL (4.8-10.8)
[2023-07-18 14:13] LABS: BHCG - Serum Negative (NEGATIVE); Pregs Control Background? CLEAR/WHITE (CLR/WHITE); Pregs Control Bar Appear? YES (CONTROL BAR)
[2023-07-18 14:27] LABS: ALT (SGPT) 12 U/L (8-55); AST (SGOT) 9 U/L (5-34); Albumin 3.5 g/dL (3.5-5.0); Alkaline Phosphatase 100 U/L (40-110); Anion Gap 9 mmol/L (10-20); BUN (Urea Nitrogen) 17 mg/dL (7.0-18.7); Bilirubin, Total 0.2 mg/dL (0.2-1.2); CK (CPK) 32 U/L (29-168); Calc. Creatinine Clearance 0 mL/min (70-130); Calcium 8.6 mg/dL (7.8-10.44); Carbon Dioxide 24 mmol/L (22-29); Chloride 109 mmol/L (98-107); Estimated GFR 95; Globulin 2.6 g/dL (2.4-3.5); Glucose 83 mg/dL (70-105); Potassium 3.7 mmol/L (3.5-5.1); Protein, Total 6.1 g/dL (6.0-8.3); Sodium 138 mmol/L (136-145)
[2023-07-18 14:31] LABS: Troponin I Less than 0.010 ng/mL (< 0.028)
== END 2023-07-18 15:24 | disposition home or self-care (01) ==
LOC: ERS 13:41
DX: S09.90XA Unspecified injury of head, initial encounter (principal); R55 Syncope and collapse; E78.5 Hyperlipidemia, unspecified; I10 Essential (primary) hypertension; K21.9 Gastro-esophageal reflux disease without esophagitis; W18.30XA Fall on same level, unspecified, initial encounter; Z79.01 Long term (current) use of anticoagulants
CPT/HCPCS: 36415; 70450; 71045; 80053; 82550; 84484; 84703; 85025; 93005; 96360

== ENCOUNTER 2023-07-27 15:47 | Emergency (ER) | payer OTHER ==
[2023-07-27 16:48] LABS: #Eosinphils 0.2 thou/uL (0.0-0.7); #Monocytes 0.4 thou/uL (0.11-0.59); #Neutrophils 5.3 thou/uL (1.40-6.50); %Basophils 0.5 % (0.0-1.0); %Eosinophils 2.2 % (0.0-10.0); %Lymphocytes 19.1 % (21.0-51.0); %Monocytes 5.1 % (0.0-10.0); %Neutrophils 72.7 % (42.0-75.0); Hematocrit 39.6 % (36.0-47.0); Hemoglobin 12.4 g/dL (12.0-16.0); Mean Corpuscular HGB CONC 31.3 g/dL (32.0-36.0); Mean Corpuscular Volume 89.4 fl (78.0-98.0); Mean Platelet Volume 9.4 fL (7.4-10.4); Platelet Count 217 10x3/uL (130-400); RBC Distribution Width 11.9 % (11.5-14.5); Red Blood Cell (RBC) Count 4.43 mill/uL (4.20-5.40); White Blood Cell (WBC) Count 7.3 10x3/uL (4.8-10.8)
[2023-07-27 17:15] LABS: ALT (SGPT) 14 U/L (8-55); AST (SGOT) 10 U/L (5-34); Albumin 3.9 g/dL (3.5-5.0); Alkaline Phosphatase 117 U/L (40-110); Anion Gap 12 mmol/L (10-20); BUN (Urea Nitrogen) 14 mg/dL (7.0-18.7); Bilirubin, Total 0.2 mg/dL (0.2-1.2); Calc. Creatinine Clearance 0 mL/min (70-130); Calcium 9.1 mg/dL (7.8-10.44); Carbon Dioxide 19 mmol/L (22-29); Chloride 113 mmol/L (98-107); Estimated GFR 101; Globulin 2.8 g/dL (2.4-3.5); Glucose 89 mg/dL (70-105); Potassium 4.2 mmol/L (3.5-5.1); Protein, Total 6.7 g/dL (6.0-8.3); Sodium 140 mmol/L (136-145)
[2023-07-27 17:17] LABS: Troponin I Less than 0.010 ng/mL (< 0.028)
[2023-07-27 17:32] LABS: Free T4 (Free Thyroxine) 0.81 ng/dL (0.70-1.48)
== END 2023-07-27 18:05 | disposition home or self-care (01) ==
LOC: ERS 15:47
DX: R55 Syncope and collapse (principal); I10 Essential (primary) hypertension; E78.5 Hyperlipidemia, unspecified; K21.9 Gastro-esophageal reflux disease without esophagitis; Z79.899 Other long term (current) drug therapy
CPT/HCPCS: 36415; 70450; 71045; 80053; 83735; 84439; 84443; 84484; 85025; 93005; 96360

== ENCOUNTER 2023-08-04 17:00 | Outpatient (CLI) | payer OTHER | END 2023-08-04 17:01 | disposition home or self-care (01) | LOC: SLEEPLAB 17:00 | PROVIDERS: ATTEND Student in an Organized Health Care Education/Training Program | DX: G47.33 Obstructive sleep apnea (adult) (pediatric) (principal); G47.00 Insomnia, unspecified; K21.9 Gastro-esophageal reflux disease without esophagitis; F41.9 Anxiety disorder, unspecified; R51.9 Headache, unspecified; R06.83 Snoring; F32.A Depression, unspecified; R53.83 Other fatigue | CPT/HCPCS: 95810 ==

== ENCOUNTER 2023-08-24 16:43 | Emergency (ER) | payer OTHER ==
[2023-08-24 18:08] LABS: #Eosinphils 0.2 thou/uL (0.0-0.7); #Monocytes 0.4 thou/uL (0.11-0.59); #Neutrophils 5.4 thou/uL (1.40-6.50); %Basophils 0.4 % (0.0-1.0); %Eosinophils 2.7 % (0.0-10.0); %Monocytes 4.9 % (0.0-10.0); %Neutrophils 72.9 % (42.0-75.0); Hemoglobin 12.5 g/dL (12.0-16.0); Mean Corpuscular HGB CONC 32.1 g/dL (32.0-36.0); Mean Corpuscular Hemoglobin 28.5 pg (27.0-31.0); Mean Corpuscular Volume 88.8 fl (78.0-98.0); Mean Platelet Volume 9.5 fL (7.4-10.4); Platelet Count 213 10x3/uL (130-400); Red Blood Cell (RBC) Count 4.39 mill/uL (4.20-5.40); White Blood Cell (WBC) Count 7.4 10x3/uL (4.8-10.8)
[2023-08-24 18:18] LABS: BHCG - Serum Negative (NEGATIVE); Pregs Control Background? CLEAR/WHITE (CLR/WHITE); Pregs Control Bar Appear? YES (CONTROL BAR)
[2023-08-24 18:31] LABS: ALT (SGPT) 12 U/L (8-55); AST (SGOT) 12 U/L (5-34); Albumin 3.9 g/dL (3.5-5.0); Alkaline Phosphatase 119 U/L (40-110); Anion Gap 11 mmol/L (10-20); BUN (Urea Nitrogen) 11 mg/dL (7.0-18.7); Bilirubin, Total Less than 0.2 mg/dL (0.2-1.2); Calc. Creatinine Clearance 0 mL/min (70-130); Calcium 8.8 mg/dL (7.8-10.44); Carbon Dioxide 19 mmol/L (22-29); Chloride 112 mmol/L (98-107); Estimated GFR 103; Globulin 2.8 g/dL (2.4-3.5); Glucose 72 mg/dL (70-105); Potassium 3.9 mmol/L (3.5-5.1); Protein, Total 6.7 g/dL (6.0-8.3); Sodium 138 mmol/L (136-145)
== END 2023-08-24 18:45 | disposition home or self-care (01) ==
LOC: ERS 16:43
DX: R55 Syncope and collapse (principal); E78.5 Hyperlipidemia, unspecified; I10 Essential (primary) hypertension; K21.9 Gastro-esophageal reflux disease without esophagitis; Z79.899 Other long term (current) drug therapy; Z79.01 Long term (current) use of anticoagulants
CPT/HCPCS: 36415; 80053; 84146; 84703; 85025; 93005

== ENCOUNTER 2023-09-20 08:35 | Outpatient (CLI) | payer OTHER | END 2023-09-20 08:36 | disposition home or self-care (01) | LOC: BICRAD 08:35 | PROVIDERS: ATTEND Student in an Organized Health Care Education/Training Program | DX: S43.422A Sprain of left rotator cuff capsule, initial encounter (principal) ==

== ENCOUNTER 2024-01-10 09:08 | Outpatient (CLI) | payer OTHER | END 2024-01-10 09:09 | disposition home or self-care (01) | LOC: BICRAD 09:08 | PROVIDERS: ATTEND Student in an Organized Health Care Education/Training Program | DX: M17.5 Other unilateral secondary osteoarthritis of knee (principal); M25.561 Pain in right knee; M25.562 Pain in left knee; M17.12 Unilateral primary osteoarthritis, left knee | CPT/HCPCS: 73565 ==

== ENCOUNTER 2024-02-11 10:44 | Emergency (ER) | payer MEDICARE, OTHER ==
[2024-02-11 12:25] LABS: #Basophils Less than 0.03 10x3/uL (0.0-0.2); %Basophils 0.4 % (0.0-1.0); %Eosinophils 2.5 % (0.0-10.0); %Monocytes 6.1 % (0.0-10.0); %Neutrophils 56.8 % (42.0-75.0); Hemoglobin 11.4 g/dL (12.0-16.0); Mean Corpuscular HGB CONC 31.7 g/dL (32.0-36.0); Mean Corpuscular Hemoglobin 27.2 pg (27.0-31.0); Mean Corpuscular Volume 85.9 fl (78.0-98.0); Mean Platelet Volume 9.3 fL (7.4-10.4); Platelet Count 225 10x3/uL (130-400); RBC Distribution Width 12.8 % (11.5-14.5); Red Blood Cell (RBC) Count 4.19 mill/uL (4.20-5.40)
[2024-02-11 12:42] LABS: ALT (SGPT) 13 U/L (8-55); AST (SGOT) 15 U/L (5-34); Acetaminophen Less than 10 mcg/mL (10.0-30.0); Albumin 3.8 g/dL (3.5-5.0); Alcohol Less than 10.0 mg/dL (Less than 10); Alkaline Phosphatase 104 U/L (40-110); Anion Gap 13 mmol/L (10-20); BUN (Urea Nitrogen) 8 mg/dL (7.0-18.7); Bilirubin, Total 0.2 mg/dL (0.2-1.2); Calc. Creatinine Clearance 0 mL/min (70-130); Calcium 8.9 mg/dL (7.8-10.44); Carbon Dioxide 21 mmol/L (22-29); Chloride 111 mmol/L (98-107); Estimated GFR 102; Glucose 80 mg/dL (70-105); Potassium 3.9 mmol/L (3.5-5.1); Protein, Total 6.8 g/dL (6.0-8.3); Salicylate Less than 8.0 mg/dL (15.0-30.0); Sodium 141 mmol/L (136-145)
[2024-02-11 12:48] LABS: Bilirubin Negative (Negative); Blood, Urine 3+ (Negative); Glucose, Urine (Dipstick) Normal (Negative); Ketone, Urine Negative (Negative); Leukocyte Negative Leu/uL (Negative); Nitrite Negative (Negative); Protein, Urine (Dipstick) Negative (Neg-Trace); RBC/HPF Greater than 50 HPF (0-3); Specific Gravity, Urine 1.006 (1.002-1.036); Urobilinogen Normal mg/dL (Less than 2); pH, Urine 5.5 (5.0-9.0)
[2024-02-11 13:31] LABS: Clarity Cloudy (Clear); WBC/HPF 0-3 HPF (0-3)
[2024-02-11 13:32] LABS: Bacteria/HPF None Seen HPF (None Seen); Squamous Epithelial None Seen HPF (0-3)
[2024-02-11 13:33] LABS: Urine Culture Reflex No No
[2024-02-11 13:34] LABS: Amphetamine Not Detected (NotDetected); Barbiturates Screen Not Detected (NotDetected); Benzodiazepine Screen Not Detected (NotDetected); Cocaine Metabolite Screen Not Detected (NotDetected); Methadone Not Detected (NotDetected); Methamphetamine Not Detected (NotDetected); Opiate Screen Not Detected (NotDetected); Oxycodone Screen Not Detected (NotDetected); Phencyclidine (PCP) Not Detected (NotDetected); THC/Cannabinoid Screen Not Detected (NotDetected); Tricyclic Screen Detected (NotDetected)
[2024-02-11 13:36] LABS: Pregnancy Test - Urine (BHCG) Negative (Negative); Pregu Control Background? CLEAR/WHITE (CLR/WHITE); Pregu Control Bar Appear? YES (CONTROL BAR); Specific Gravity 1.009 (1.002-1.036)
== END 2024-02-11 16:28 ==
LOC: ERS 10:44
DX: T14.91XA Suicide attempt, initial encounter (principal); F32.9 Major depressive disorder, single episode, unspecified; E66.9 Obesity, unspecified
CPT/HCPCS: 36415; 71045; 80053; 80306; 80307; 81001; 81025; 84443; 85025; 93005

== ENCOUNTER 2024-05-18 11:27 | Emergency (ER) | payer OTHER, MEDICARE ==
[2024-05-18 12:42] LABS: #Basophils Less than 0.03 10x3/uL (0.0-0.2); %Basophils 0.3 % (0.0-1.0); %Eosinophils 2.6 % (0.0-10.0); %Lymphocytes 29.3 % (21.0-51.0); %Monocytes 3.4 % (0.0-10.0); %Neutrophils 64.1 % (42.0-75.0); Hematocrit 38.7 % (36.0-47.0); Hemoglobin 11.8 g/dL (12.0-16.0); Mean Corpuscular HGB CONC 30.5 g/dL (32.0-36.0); Mean Corpuscular Hemoglobin 25.2 pg (27.0-31.0); Mean Corpuscular Volume 82.7 fL (78.0-98.0); Mean Platelet Volume 10.4 fL (7.4-10.4); Platelet Count 293 10x3/uL (130-400); Red Blood Cell (RBC) Count 4.68 mill/uL (4.20-5.40)
[2024-05-18 12:59] LABS: Bacteria/HPF None Seen HPF (None Seen); Bilirubin Negative (Negative); Blood, Urine Negative (Negative); CAUTI Indications for Culture Dysuria,urgency,freq; Clarity Clear (Clear); Glucose, Urine (Dipstick) Normal (Negative); Ketone, Urine Negative (Negative); Leukocyte Negative Leu/uL (Negative); Nitrite Negative (Negative); Protein, Urine (Dipstick) Negative (Neg-Trace); RBC/HPF None Seen HPF (0-3); Specific Gravity, Urine 1.022 (1.002-1.036); Squamous Epithelial 0-3 HPF (0-3); Urobilinogen 3 mg/dL (Less than 2); WBC/HPF 0-3 HPF (0-3); pH, Urine 6.5 (5.0-9.0)
[2024-05-18 13:13] LABS: ALT (SGPT) 12 U/L (8-55); AST (SGOT) 13 U/L (5-34); Albumin 3.4 g/dL (3.5-5.0); Alkaline Phosphatase 113 U/L (40-110); Anion Gap 14 mmol/L (10-20); BUN (Urea Nitrogen) 11 mg/dL (7.0-18.7); Bilirubin, Total 0.2 mg/dL (0.2-1.2); Calc. Creatinine Clearance 0 mL/min (70-130); Carbon Dioxide 15 mmol/L (22-29); Chloride 112 mmol/L (98-107); Estimated GFR 98; Globulin 3.5 g/dL (2.4-3.5); Glucose 266 mg/dL (70-105); Potassium 3.9 mmol/L (3.5-5.1); Protein, Total 6.9 g/dL (6.0-8.3); Sodium 137 mmol/L (136-145)
[2024-05-18 13:14] LABS: Acetaminophen Less than 10 mcg/mL (10.0-30.0); Alcohol Less than 10.0 mg/dL (Less than 10); Salicylate Less than 8.0 mg/dL (15.0-30.0)
[2024-05-18 13:23] LABS: Pregnancy Test - Urine (BHCG) Negative (Negative); Pregu Control Background? CLEAR/WHITE (CLR/WHITE); Pregu Control Bar Appear? YES (CONTROL BAR); Specific Gravity 1.022 (1.002-1.036); Urine Culture Reflex No No
[2024-05-18 13:31] LABS: Amphetamine Not Detected (NotDetected); Barbiturates Screen Not Detected (NotDetected); Benzodiazepine Screen Not Detected (NotDetected); Cocaine Metabolite Screen Not Detected (NotDetected); Methadone Not Detected (NotDetected); Methamphetamine Not Detected (NotDetected); Opiate Screen Not Detected (NotDetected); Oxycodone Screen Not Detected (NotDetected); Phencyclidine (PCP) Not Detected (NotDetected); THC/Cannabinoid Screen Not Detected (NotDetected); Tricyclic Screen Not Detected (NotDetected)
== END 2024-05-18 18:50 | disposition home or self-care (01) ==
LOC: ERS 11:27
DX: R45.851 Suicidal ideations (principal); E11.9 Type 2 diabetes mellitus without complications
CPT/HCPCS: 36415; 80053; 80306; 80307; 81001; 81025; 84443; 85025; 93005

== ENCOUNTER 2024-12-19 20:06 | Emergency (ER) | payer OTHER ==
[2024-12-19 22:03] LABS: #Basophils 0.04 10x3/uL (0.0-0.2); %Basophils 0.6 % (0.0-1.0); %Eosinophils 2.2 % (0.0-10.0); %Lymphocytes 24.6 % (21.0-51.0); %Monocytes 3.9 % (0.0-10.0); %Neutrophils 68.5 % (42.0-75.0); Hematocrit 38.8 % (36.0-47.0); Hemoglobin 12.4 g/dL (12.0-16.0); Mean Corpuscular Hemoglobin 26.6 pg (27.0-31.0); Mean Corpuscular Volume 83.3 fL (78.0-98.0); Mean Platelet Volume 9.6 fL (7.4-10.4); Platelet Count 263 10x3/uL (130-400); Red Blood Cell (RBC) Count 4.66 mill/uL (4.20-5.40)
[2024-12-19 22:24] LABS: ALT (SGPT) 13 U/L (Less than 34); AST (SGOT) 22 U/L (11-34); Albumin 3.7 g/dL (3.1-4.5); Alkaline Phosphatase 119 U/L (40-110); Anion Gap 12 mmol/L (10-20); BUN (Urea Nitrogen) 16 mg/dL (7.0-18.7); Bilirubin, Total 0.2 mg/dL (0.3-1.2); Calc. Creatinine Clearance 0 mL/min (70-130); Calcium 8.8 mg/dL (7.8-10.44); Carbon Dioxide 19 mmol/L (22-29); Chloride 113 mmol/L (98-107); Estimated GFR 115; Globulin 3.5 g/dL (2.4-3.5); Glucose 87 mg/dL (70-105); Lipase 12 U/L (8-78); Potassium 4.1 mmol/L (3.5-5.1); Protein, Total 7.2 g/dL (6.0-8.3); Sodium 140 mmol/L (136-145)
[2024-12-19 22:47] LABS: Bilirubin 1+ (Negative); Blood, Urine Negative (Negative); CAUTI Indications for Culture Dysuria,urgency,freq; Clarity Clear (Clear); Glucose, Urine (Dipstick) Normal (Negative); Ketone, Urine Negative (Negative); Leukocyte 250 Leu/uL (Negative); Nitrite 1+ (Negative); Protein, Urine (Dipstick) Negative (Neg-Trace); RBC/HPF 0-3 HPF (0-3); Specific Gravity, Urine 1.015 (1.002-1.036); Urobilinogen 3 mg/dL (Less than 2); WBC/HPF 21-50 HPF (0-3)
[2024-12-19 22:49] LABS: Bacteria/HPF 1+ HPF (None Seen)
[2024-12-19 22:50] LABS: Urine Culture Reflex Yes Yes
[2024-12-19 22:52] LABS: Pregnancy Test - Urine (BHCG) Negative (Negative); Pregu Control Background? CLEAR/WHITE (CLR/WHITE); Pregu Control Bar Appear? YES (CONTROL BAR); Specific Gravity 1.015 (1.002-1.036)
== END 2024-12-19 23:27 | disposition home or self-care (01) ==
LOC: ERS 20:06
DX: N39.0 Urinary tract infection, site not specified (principal); Z79.899 Other long term (current) drug therapy
CPT/HCPCS: 36415; 80053; 81001; 81025; 83690; 85025; 87077; 87086; 87186; 99283

== ENCOUNTER 2025-08-01 11:58 | Emergency (ER) | payer OTHER | END 2025-08-01 14:00 | disposition home or self-care (01) | LOC: ERS 11:58 | DX: R05.3 Chronic cough (principal); E66.9 Obesity, unspecified; J45.909 Unspecified asthma, uncomplicated; Z79.51 Long term (current) use of inhaled steroids; Z79.899 Other long term (current) drug therapy | CPT/HCPCS: 71045; 99284 ==

== ENCOUNTER 2025-08-07 10:46 | Emergency (ER) | payer OTHER ==
[2025-08-07] MEDS ORDERED: Ketorolac Tromethamine 30 MG (1 mL) VIAL ONE (12:06)
[2025-08-07] MEDS ORDERED: Ondansetron PF 4 MG/2 ML Vial ONE (12:06)
[2025-08-07 12:27] LABS: #Basophils Less than 0.03 10x3/uL (0.0-0.2); #Eosinophils 0.21 10x3/uL (0.0-0.7); #Monocytes 0.40 10x3/uL (0.11-0.59); #Neutrophils 4.54 10x3/uL (1.40-6.50); %Basophils 0.1 % (0.0-1.0); %Eosinophils 2.9 % (0.0-10.0); %Lymphocytes 29.5 % (21.0-51.0); %Monocytes 5.4 % (0.0-10.0); %Neutrophils 61.7 % (42.0-75.0); Hematocrit 41.5 % (36.0-47.0); Hemoglobin 13.0 g/dL (12.0-16.0); Mean Corpuscular Hemoglobin 28.2 pg (27.0-31.0); Mean Corpuscular Volume 90.0 fL (78.0-98.0); Platelet Count 291 10x3/uL (130-400); Red Blood Cell (RBC) Count 4.61 mill/uL (4.20-5.40); White Blood Cell (WBC) Count 7.36 10x3/uL (4.8-10.8)
[2025-08-07 12:40] LABS: ALT (SGPT) 12 U/L (Less than 34); AST (SGOT) 14 U/L (11-34); Albumin 3.7 g/dL (3.1-4.5); Alkaline Phosphatase 88 U/L (40-110); Anion Gap 12 mmol/L (10-20); BUN (Urea Nitrogen) 10 mg/dL (7.0-18.7); Bilirubin, Total 0.2 mg/dL (0.3-1.2); Calc. Creatinine Clearance 0 mL/min (70-130); Calcium 9.1 mg/dL (7.8-10.44); Carbon Dioxide 23 mmol/L (22-29); Chloride 111 mmol/L (98-107); Globulin 3.2 g/dL (2.4-3.5); Glucose 79 mg/dL (70-105); Lipase 18 U/L (8-78); Potassium 3.9 mmol/L (3.5-5.1); Sodium 142 mmol/L (136-145)
[2025-08-07 12:44] LABS: Bacteria/HPF None Seen HPF (None Seen); CAUTI Indications for Culture Pelvic or flank pain; Glucose, Urine (Dipstick) Normal (Negative); Leukocyte Negative Leu/uL (Negative); Protein, Urine (Dipstick) Negative (Neg-Trace); RBC/HPF 0-3 HPF (0-3); Specific Gravity, Urine 1.022 (1.002-1.036); WBC/HPF 0-3 HPF (0-3)
[2025-08-07 12:45] LABS: Urine Culture Reflex No No
[2025-08-07] MEDS ORDERED: Iopamidol-370 76% 500 ML MDV (1 ML CHARGE) ONE (14:25)
== END 2025-08-07 14:39 | disposition home or self-care (01) ==
LOC: ERS 10:46
DX: R10.31 Right lower quadrant pain (principal); R11.0 Nausea; K21.9 Gastro-esophageal reflux disease without esophagitis; F43.10 Post-traumatic stress disorder, unspecified; E78.5 Hyperlipidemia, unspecified; Z79.899 Other long term (current) drug therapy
CPT/HCPCS: 74177; 76830; 76856; 80053; 81001; 83690; 85025; J1885; J2405; 96374; 96375